=== PATIENT | female | born 1995 | race Asian ===

== ENCOUNTER → 2017-02-11 | Outpatient (CLI) | payer BC ==
[~2017-02-11] MED LIST: AMOX1TAB42 PO; CALC500C70 PO; CLC100 PO; CLC150 PO; FERR1TAB2; LBT100 PO; MTR600X PO; OXYC-57 PO; PRENTAB26 PO
[2017-02-11 15:49] LABS: URINE APPEARANCE CLEAR (CLEAR); URINE BILIRUBIN NEG (NEG); URINE COLOR YELLOW; URINE EPITHELIAL CELL AUTO >30 /lpf (0-5); URINE NITRITE NEG (NEG); URINE SPECIFIC GRAVITY 1.015 (1.000-1.030); UROBILINOGEN NEG (NEG)
[2017-02-11 15:52] LABS: MANUAL MICROSCOPIC REQUIRED? NO; REVIEW REQ? NO
== END | disposition home or self-care (01) ==
LOC: C.LABSPEC 14:46
PROVIDERS: ATTEND Obstetrics & Gynecology
DX: Z34.02 Encounter for supervision of normal first pregnancy, second trimester (principal)

== ENCOUNTER → 2017-02-17 | Outpatient (CLI) | payer BC ==
[2017-02-17 14:47] LABS: HEMATOCRIT 33.4 % (37-47)
[2017-02-17 15:02] LABS: GTGD 50 Grams
== END | disposition home or self-care (01) ==
LOC: C.LAB1850 13:10
PROVIDERS: ATTEND Obstetrics & Gynecology
DX: Z34.03 Encounter for supervision of normal first pregnancy, third trimester (principal)

== ENCOUNTER → 2017-03-09 | Outpatient (CLI) | payer BC ==
[2017-03-09 10:48] LABS: BASO % 0.1 %; BASO ABS # 0.01 K/uL (0-0.2); EOS % 1.1 %; HEMATOCRIT 34.7 % (37-47); IG% 2.4 %; LYMPH % 16.4 %; LYMPH ABS # 1.86 K/uL (1.2-3.4); MEAN CORPUSCULAR HEMOGLOBIN 27.3 pg (25-34); MEAN PLATELET VOLUME 9.7 fL (7.4-10.4); MONO % 4.9 %; NEUT % 75.1 %; PLATELET COUNT 278 K/uL (130-400); RED BLOOD COUNT 4.18 M/uL (4.2-5.4); WHITE BLOOD COUNT 11.31 K/uL (4.8-10.8)
[2017-03-09 11:05] LABS: COMPLETE YES; MEAN CORPUSCULAR HGB CONC 32.9 g/dl (32-36)
[2017-03-09 11:12] LABS: ALT/SGPT 30 U/L (12-78); AST/SGOT 23 U/L (15-37); CREATININE 0.44 mg/dl (0.60-1.20); URIC ACID 3.3 mg/dl (2.6-7.2)
== END | disposition home or self-care (01) ==
LOC: C.LAB1850 10:20
PROVIDERS: ATTEND Obstetrics & Gynecology
DX: O16.3 Unspecified maternal hypertension, third trimester (principal)

== ENCOUNTER → 2017-03-11 | Outpatient (CLI) | payer BC ==
[2017-03-11 10:04] LABS: URINE TOTAL PROTEIN 16.5 mg/dl (0-11.9)
== END | disposition home or self-care (01) ==
LOC: C.LAB1850 09:09
PROVIDERS: ATTEND Obstetrics & Gynecology
DX: O16.3 Unspecified maternal hypertension, third trimester (principal)

== ENCOUNTER → 2017-03-30 | Outpatient (CLI) | payer BC ==
[2017-03-30 11:55] LABS: HEMATOCRIT 37.8 % (37-47); MEAN CELL VOLUME 83.1 fL (80-100); MEAN CORPUSCULAR HEMOGLOBIN 26.6 pg (25-34); MEAN PLATELET VOLUME 10.1 fL (7.4-10.4); PLATELET COUNT 270 K/uL (130-400); RED BLOOD COUNT 4.55 M/uL (4.2-5.4); WHITE BLOOD COUNT 10.81 K/uL (4.8-10.8)
[2017-03-30 12:08] LABS: ALKALINE PHOSPHATASE 149 U/L (45-117); ALT/SGPT 33 U/L (12-78); AST/SGOT 25 U/L (15-37); URIC ACID 3.4 mg/dl (2.6-7.2)
== END | disposition home or self-care (01) ==
LOC: C.LAB1850 10:28
PROVIDERS: ATTEND Obstetrics & Gynecology
DX: O13.3 Gestational [pregnancy-induced] hypertension without significant proteinuria, third trimester (principal)

== ENCOUNTER → 2017-04-04 | Outpatient (CLI) | payer BC ==
[2017-04-04 18:22] LABS: HEMATOCRIT 36.1 % (37-47); MEAN CELL VOLUME 81.5 fL (80-100); MEAN CORPUSCULAR HEMOGLOBIN 27.1 pg (25-34); MEAN CORPUSCULAR HGB CONC 33.2 g/dl (32-36); MEAN PLATELET VOLUME 10.7 fL (7.4-10.4); PLATELET COUNT 263 K/uL (130-400); RED BLOOD COUNT 4.43 M/uL (4.2-5.4); WHITE BLOOD COUNT 9.87 K/uL (4.8-10.8)
[2017-04-04 18:38] LABS: ALKALINE PHOSPHATASE 151 U/L (45-117); ALT/SGPT 30 U/L (12-78); AST/SGOT 22 U/L (15-37)
== END | disposition home or self-care (01) ==
LOC: C.LAB1850 17:16
PROVIDERS: ATTEND Obstetrics & Gynecology
DX: O13.3 Gestational [pregnancy-induced] hypertension without significant proteinuria, third trimester (principal)

== ENCOUNTER → 2017-04-13 | Outpatient (CLI) | payer BC ==
[2017-04-13 13:17] LABS: BASO % 0.2 %; BASO ABS # 0.02 K/uL (0-0.2); COMPLETE YES; EOS % 1.1 %; HEMATOCRIT 38.1 % (37-47); IG% 1.9 %; LYMPH % 16.2 %; LYMPH ABS # 1.53 K/uL (1.2-3.4); MEAN CELL VOLUME 81.4 fL (80-100); MEAN CORPUSCULAR HEMOGLOBIN 27.6 pg (25-34); MEAN CORPUSCULAR HGB CONC 33.9 g/dl (32-36); MEAN PLATELET VOLUME 10.8 fL (7.4-10.4); MONO % 4.3 %; NEUT % 76.3 %; PLATELET COUNT 275 K/uL (130-400); RED BLOOD COUNT 4.68 M/uL (4.2-5.4); WHITE BLOOD COUNT 9.47 K/uL (4.8-10.8)
[2017-04-13 14:58] LABS: ALT/SGPT 34 U/L (12-78); AST/SGOT 29 U/L (15-37); BLOOD UREA NITROGEN 12 mg/dl (7-18); BUN/CREATININE RATIO 22.5 (10-20); CALCIUM 9.4 mg/dl (8.5-10.1); CARBON DIOXIDE 19 mmol/L (21-32); CHLORIDE 109 mmol/L (98-107); CREATININE 0.53 mg/dl (0.60-1.20); GLUCOSE 177 mg/dl (70-99); POTASSIUM 3.9 mmol/L (3.5-5.1); SODIUM 138 mmol/L (136-145)
[2017-04-13 15:01] LABS: ALB/GLOB RATIO 0.6 (0.9-2); ALKALINE PHOSPHATASE 174 U/L (45-117)
== END | disposition home or self-care (01) ==
LOC: C.LAB1850 12:03
PROVIDERS: ATTEND Obstetrics & Gynecology
DX: O13.3 Gestational [pregnancy-induced] hypertension without significant proteinuria, third trimester (principal)

== ENCOUNTER 2017-04-20 11:26 | Outpatient (CLI) | payer BC ==
[~2017-04-20] VITALS: Ht 162.6 cm; Wt 101.8 kg
[2017-04-20 12:18] LABS: BASO % 0.2 %; BASO ABS # 0.02 K/uL (0-0.2); HEMATOCRIT 37.5 % (37-47); IG% 1.8 %; LYMPH % 15.3 %; LYMPH ABS # 1.59 K/uL (1.2-3.4); MEAN CELL VOLUME 81.2 fL (80-100); MEAN CORPUSCULAR HEMOGLOBIN 27.5 pg (25-34); MEAN PLATELET VOLUME 10.9 fL (7.4-10.4); MONO % 4.7 %; PLATELET COUNT 244 K/uL (130-400); RED BLOOD COUNT 4.62 M/uL (4.2-5.4); WHITE BLOOD COUNT 10.38 K/uL (4.8-10.8)
[2017-04-20 12:24] LABS: INR 0.9 (0.9-1.1); PROTHROMBIN TIME (PATIENT) 9.7 SECONDS (9.0-12.0)
[2017-04-20] MEDS ORDERED: CALC500C70 PO (12:30)
[2017-04-20] MEDS ORDERED: FERR1TAB2 (12:30)
[2017-04-20] MEDS ORDERED: PRENTAB26 PO (12:30)
[2017-04-20 12:31] VITALS: Ht 162.6 cm; Wt 101.8 kg
[2017-04-20 12:31] LABS: COMPLETE YES; MEAN CORPUSCULAR HGB CONC 33.9 g/dl (32-36)
[2017-04-20] MEDS ORDERED: ACETAMINOPHEN 325 MG TAB PO PRN (12:45)
[2017-04-20 12:46] LABS: ALKALINE PHOSPHATASE 170 U/L (45-117); ALT/SGPT 55 U/L (12-78); AST/SGOT 39 U/L (15-37); CREATININE 0.57 mg/dl (0.60-1.20); URIC ACID 5.7 mg/dl (2.6-7.2)
[2017-04-20 12:47] LABS: URINE TOTAL PROTEIN 44.3 mg/dl (0-11.9)
[2017-04-20 13:29] LABS: URINE PROTIEN/CREAT RATIO 0.6 (0-0.2)
[2017-04-28] MEDS ORDERED: MTR600X PO (06:51)
[2017-04-28] MEDS ORDERED: CLC150 PO (06:51)
[2017-04-28] MEDS ORDERED: CLC100 PO (06:51)
[2017-04-28] MEDS ORDERED: LBT100 PO (06:51)
[2017-04-28] MEDS ORDERED: AMOX1TAB42 PO (06:51)
[2017-04-28] MEDS ORDERED: OXYC-57 PO (06:51)
== END 2017-04-20 14:05 | disposition home or self-care (01) ==
LOC: C.LD 11:26 → C.OPB 11:26
PROVIDERS: ATTEND Obstetrics & Gynecology
DX: O13.3 Gestational [pregnancy-induced] hypertension without significant proteinuria, third trimester (principal); Z3A.36 36 weeks gestation of pregnancy

== ENCOUNTER → 2017-04-20 | Outpatient (CLI) | payer BC ==
[~2017-04-20] MED LIST changes: -AMOX1TAB42 PO; -CLC100 PO; -CLC150 PO; -LBT100 PO; -MTR600X PO; -OXYC-57 PO
== END | disposition home or self-care (01) ==
LOC: C.LABSPEC 13:55
PROVIDERS: ATTEND Obstetrics & Gynecology
DX: Z34.03 Encounter for supervision of normal first pregnancy, third trimester (principal); Z3A.00 Weeks of gestation of pregnancy not specified

== ENCOUNTER 2017-04-22 12:15 | Inpatient (IN) | payer BC ==
[~2017-04-22] VITALS: Ht 160 cm; Wt 100.2 kg
[2017-04-22 13:05] VITALS: Ht 160 cm; Wt 100.2 kg
[2017-04-22] MEDS ORDERED: PENICILLIN G POTASSIUM IV 6 MU in DEXTROSE 5% 250ML 250 ML IV ONE (14:15)
[2017-04-22] MEDS: LACTATED RINGER'S 1000ML 500 ML IV PRN ×2 (14:21→22:43)
[2017-04-22] MEDS: OXYTOCIN 30 UNITS/500ML NSS IV PRN (14:33)
[2017-04-22 14:53] LABS: BASO % 0.2 %; BASO ABS # 0.02 K/uL (0-0.2); EOS % 0.8 %; HEMATOCRIT 37.4 % (37-47); IG% 2.4 %; LYMPH % 14.4 %; LYMPH ABS # 1.64 K/uL (1.2-3.4); MEAN CORPUSCULAR HEMOGLOBIN 27.7 pg (25-34); MEAN PLATELET VOLUME 10.8 fL (7.4-10.4); NEUT % 76.2 %; PLATELET COUNT 246 K/uL (130-400); RED BLOOD COUNT 4.62 M/uL (4.2-5.4); WHITE BLOOD COUNT 11.37 K/uL (4.8-10.8)
[2017-04-22 14:59] LABS: COMPLETE YES; MEAN CORPUSCULAR HGB CONC 34.2 g/dl (32-36)
[2017-04-22 15:11] LABS: ALT/SGPT 54 U/L (12-78); AST/SGOT 46 U/L (15-37)
[2017-04-22] MEDS: PENICILLIN G POTASSIUM IV 3 MU in DEXTROSE 5% 100ML 100 ML IV PRN ×2 (18:18→22:43)
[2017-04-22] MEDS: ACETAMINOPHEN 500 MG TAB PO PRN (19:52)
[2017-04-22 22:31] LABS: BASO % 0.2 %; BASO ABS # 0.03 K/uL (0-0.2); EOS % 0.7 %; HEMATOCRIT 38.1 % (37-47); IG% 2.2 %; LYMPH % 15.9 %; LYMPH ABS # 1.98 K/uL (1.2-3.4); MEAN CELL VOLUME 81.4 fL (80-100); MEAN PLATELET VOLUME 10.9 fL (7.4-10.4); MONO % 5.2 %; NEUT % 75.8 %; PLATELET COUNT 265 K/uL (130-400); RED BLOOD COUNT 4.68 M/uL (4.2-5.4); WHITE BLOOD COUNT 12.43 K/uL (4.8-10.8)
[2017-04-22] MEDS ORDERED: BUPIVACAINE 0.25% 30 ML VIAL ONE (22:33)
[2017-04-22] MEDS ORDERED: EpHEDrine SULFATE INJ 50 MG/ML AMP ONE (22:33)
[2017-04-22] MEDS ORDERED: FENTANYL 2MCG/ML ROPIV 1.25MG/ML 100ML BAG EPI ONE (22:33)
[2017-04-22 22:34] LABS: COMPLETE YES; MEAN CORPUSCULAR HGB CONC 34.4 g/dl (32-36)
[2017-04-22] MEDS ORDERED: FENTANYL CITRATE INJ 50 MCG/1 ML 2 ML VIAL ONE (22:34)
[2017-04-22 22:47] LABS: ALT/SGPT 56 U/L (12-78); AST/SGOT 49 U/L (15-37)
[2017-04-22] MEDS ORDERED: LACTATED RINGER'S 1000ML 500 ML IV PRN (23:20)
[2017-04-22] MEDS ORDERED: NALOXONE HCL INJ 1 MG in SODIUM CHLORIDE 0.9% 1000ML 1,000 ML IV PRN (23:20)
[2017-04-22] MEDS ORDERED: EpHEDrine SULFATE INJ 50 MG/ML AMP IV PRN (23:30)
[2017-04-22] MEDS ORDERED: NALBUPHINE HCL INJ 10 MG/ML AMP IV PRN (23:30)
[2017-04-22] MEDS ORDERED: DiphenhydrAMINE HCL 50 MG/ML VIAL IV PRN (23:30)
[2017-04-22] MEDS ORDERED: ONDANSETRON INJ 2 MG/ML 2 ML VIAL IV PRN (23:30)
[2017-04-22] MEDS ORDERED: NALOXONE HCL INJ 0.4 MG/1 ML VIAL/CARP IV PRN (23:30)
[2017-04-23] MEDS: PENICILLIN G POTASSIUM IV 3 MU in DEXTROSE 5% 100ML 100 ML IV PRN ×6 (02:16→22:36)
[2017-04-23] MEDS ORDERED: NIFEdipine 10 MG CAP PO STA ×2 (02:28→06:15)
[2017-04-23] MEDS: ACETAMINOPHEN 500 MG TAB PO PRN (03:14)
[2017-04-23] MEDS ORDERED: MAGNESIUM SULFATE / WTR 1,000 ML IV ONE (03:32)
[2017-04-23] MEDS ORDERED: MAGNESIUM SULFATE 4GM / WTR 4 GM BAG ONE (03:38)
[2017-04-23] MEDS: FENTANYL 2MCG/ML ROPIV 1.25MG/ML 100ML BAG EPI PRN ×7 (04:58→21:40)
[2017-04-23 06:21] LABS: BASO % 0.1 %; BASO ABS # 0.02 K/uL (0-0.2); EOS % 0.3 %; HEMATOCRIT 40.2 % (37-47); IG% 1.5 %; LYMPH % 15.1 %; LYMPH ABS # 2.15 K/uL (1.2-3.4); MEAN CELL VOLUME 81.7 fL (80-100); MEAN CORPUSCULAR HEMOGLOBIN 27.8 pg (25-34); MEAN PLATELET VOLUME 10.7 fL (7.4-10.4); MONO % 3.9 %; NEUT % 79.1 %; PLATELET COUNT 265 K/uL (130-400); RED BLOOD COUNT 4.92 M/uL (4.2-5.4)
[2017-04-23 06:33] LABS: COMPLETE YES; MEAN CORPUSCULAR HGB CONC 34.1 g/dl (32-36)
[2017-04-23 06:52] LABS: ALT/SGPT 59 U/L (12-78); AST/SGOT 49 U/L (15-37)
[2017-04-23 13:40] LABS: BASO % 0.1 %; BASO ABS # 0.02 K/uL (0-0.2); EOS % 0.1 %; HEMATOCRIT 39.8 % (37-47); IG% 1.1 %; LYMPH % 9.5 %; LYMPH ABS # 1.41 K/uL (1.2-3.4); MEAN CELL VOLUME 80.7 fL (80-100); MEAN CORPUSCULAR HEMOGLOBIN 27.8 pg (25-34); MEAN PLATELET VOLUME 10.7 fL (7.4-10.4); MONO % 3.8 %; NEUT % 85.4 %; PLATELET COUNT 280 K/uL (130-400); RED BLOOD COUNT 4.93 M/uL (4.2-5.4); WHITE BLOOD COUNT 14.91 K/uL (4.8-10.8)
[2017-04-23 13:45] LABS: COMPLETE YES; MEAN CORPUSCULAR HGB CONC 34.4 g/dl (32-36)
[2017-04-23 14:07] LABS: ALT/SGPT 56 U/L (12-78); AST/SGOT 49 U/L (15-37)
[2017-04-23] MEDS: NIFEdipine 10 MG CAP PO SCH ×3 (15:24→23:51)
[2017-04-23] MEDS: LACTATED RINGER'S 1000ML 500 ML IV PRN (18:14)
[2017-04-23] MEDS: OXYTOCIN 30 UNITS/500ML NSS IV PRN (19:09)
[2017-04-23 22:17] LABS: BASO % 0.1 %; BASO ABS # 0.02 K/uL (0-0.2); EOS % 0.1 %; HEMATOCRIT 37.9 % (37-47); IG% 1.5 %; LYMPH ABS # 1.17 K/uL (1.2-3.4); MEAN CELL VOLUME 80.8 fL (80-100); MEAN CORPUSCULAR HEMOGLOBIN 27.9 pg (25-34); MEAN PLATELET VOLUME 10.5 fL (7.4-10.4); MONO % 4.2 %; NEUT % 88.1 %; PLATELET COUNT 291 K/uL (130-400); RED BLOOD COUNT 4.69 M/uL (4.2-5.4); WHITE BLOOD COUNT 19.55 K/uL (4.8-10.8)
[2017-04-23 22:24] LABS: COMPLETE YES; MEAN CORPUSCULAR HGB CONC 34.6 g/dl (32-36)
[2017-04-23 22:46] LABS: ALT/SGPT 49 U/L (12-78); AST/SGOT 44 U/L (15-37)
[2017-04-24] MEDS ORDERED: MAGNESIUM SULFATE 40GM/ WTR 1,000 ML BAG ONE (00:02)
[2017-04-24] MEDS ORDERED: FENTANYL 2MCG/ML ROPIV 1.25MG/ML 100ML BAG EPI ONE ×2 (01:50→06:50)
[2017-04-24] MEDS: PENICILLIN G POTASSIUM IV 3 MU in DEXTROSE 5% 100ML 100 ML IV PRN ×2 (02:45→06:01)
[2017-04-24] MEDS ORDERED: NIFEdipine 10 MG CAP ONE (03:44)
[2017-04-24] MEDS ORDERED: LABETALOL HCL IV 5 MG/ML 20ML IV STA (05:37)
[2017-04-24 06:13] LABS: HEMATOCRIT 39.4 % (37-47); MEAN CELL VOLUME 80.4 fL (80-100); MEAN CORPUSCULAR HGB CONC 34.8 g/dl (32-36); MEAN PLATELET VOLUME 10.6 fL (7.4-10.4); PLATELET COUNT 305 K/uL (130-400); WHITE BLOOD COUNT 25.39 K/uL (4.8-10.8)
[2017-04-24] MEDS: FENTANYL 2MCG/ML ROPIV 1.25MG/ML 100ML BAG EPI PRN (06:51)
[2017-04-24 07:08] LABS: ALB/GLOB RATIO 0.5 (0.9-2); BUN/CREATININE RATIO 13.2 (10-20); CALCIUM 8.5 mg/dl (8.5-10.1); CREATININE 0.6 mg/dl (0.60-1.20); POTASSIUM 3.8 mmol/L (3.5-5.1)
[2017-04-24 08:34] LABS: BASO % 0.1 %; BASO ABS # 0.03 K/uL (0-0.2); COMPLETE YES; LYMPH % 5.5 %; NEUT % 88.4 %
[2017-04-24] MEDS ORDERED: LACTATED RINGER'S 1000ML 1,000 ML IV SCH (10:23)
[2017-04-24] MEDS ORDERED: CITRIC ACID/SODIUM CITRATE 15 ML UDC ONE (10:24)
[2017-04-24] MEDS ORDERED: CITRIC ACID/SODIUM CITRATE 15 ML UDC PO ONE (10:30)
[2017-04-24] MEDS ORDERED: METOCLOPRAMIDE HCL INJ 5 MG/ML 2 ML VIAL ONE (10:40)
[2017-04-24] MEDS ORDERED: OXYTOCIN INJ 10 UNITS/ML VIAL ONE (10:40)
[2017-04-24] MEDS ORDERED: LIDOCAINE/EPINEPHRINE 2% 1:200,000 20 ML SDV ONE (10:40)
[2017-04-24] MEDS ORDERED: ONDANSETRON INJ 2 MG/ML 2 ML VIAL ONE (10:40)
[2017-04-24] MEDS ORDERED: PROPOFOL IV EMULSION 10 MG/ML 20 ML VIAL IV ONE (10:40)
[2017-04-24] MEDS ORDERED: SUCCINYLCHOLINE CHLORIDE 20 MG/ML 10 ML VIAL IV ONE (10:40)
[2017-04-24] MEDS ORDERED: NALOXONE HCL INJ 0.08 MG in SYRINGE 1.8 ML IV PRN (10:51)
[2017-04-24] MEDS ORDERED: SODIUM CHLORIDE 0.9% 1000ML 1,000 ML IV PRN (10:51)
[2017-04-24] MEDS ORDERED: NALOXONE HCL INJ 1 MG in SODIUM CHLORIDE 0.9% 1000ML 1,000 ML IV PRN ×4 (10:51)
[2017-04-24] MEDS ORDERED: LACTATED RINGER'S 1000ML 500 ML IV PRN (10:51)
[2017-04-24] MEDS ORDERED: METOCLOPRAMIDE HCL INJ 20 MG in SODIUM CHLORIDE 0.9% 50ML 50 ML IV PRN (11:00)
[2017-04-24] MEDS ORDERED: CEFAZOLIN IV 3,000 MG in DEXTROSE 5% 50ML 50 ML IV SCH (11:00)
[2017-04-24] MEDS ORDERED: NALOXONE HCL 0.4 MG/1 ML VIAL/CARP IV PRN (11:00)
[2017-04-24] MEDS ORDERED: MoRPHine SULFATE PF 1 MG/ML 10 ML AMP/VIAL EPI PRN (11:00)
[2017-04-24] MEDS ORDERED: NALBUPHINE HCL INJ 10 MG/ML AMP IV PRN (11:00)
[2017-04-24] MEDS ORDERED: MEPERIDINE HCL 25 MG/ML CARP IV PRN ×2 (11:00)
[2017-04-24] MEDS ORDERED: HYDROmorphone INJ 0.5 MG/0.5 ML SYR IV PRN (11:00)
[2017-04-24] MEDS ORDERED: PHENYLEPHRINE 100MCG/ML 5ML SYR IV PRN (11:00)
[2017-04-24] MEDS ORDERED: EpHEDrine SULFATE INJ 50 MG/ML AMP IV PRN ×2 (11:00)
[2017-04-24] MEDS ORDERED: ATROPINE SULFATE 0.1 MG/ML 5ML SYR IV PRN (11:00)
[2017-04-24] MEDS ORDERED: DiphenhydrAMINE HCL 50 MG/ML VIAL IV PRN (11:00)
[2017-04-24] MEDS ORDERED: NO NARCOTICS OR SEDATIVES SCH (11:00)
[2017-04-24] MEDS ORDERED: ONDANSETRON INJ 2 MG/ML 2 ML VIAL IV PRN ×2 (11:00)
[2017-04-24] MEDS ORDERED: PROMETHAZINE HCL INJ 12.5 MG in SODIUM CHLORIDE 0.9% 50ML 50 ML IV PRN ×4 (11:00)
[2017-04-24] MEDS ORDERED: KETOROLAC TROMETHAMINE 30 MG/ML VIAL IV. PRN ×2 (11:00)
[2017-04-24] MEDS ORDERED: MoRPHine SULFATE PF 1 MG/ML 10 ML AMP/VIAL ONE (11:20)
[2017-04-24] MEDS ORDERED: DC INTRASPINAL MORPHINE SCH (11:30)
[2017-04-24] MEDS ORDERED: MISOPROSTOL 200 MCG TAB ONE (11:32)
[2017-04-24] MEDS ORDERED: OXYTOCIN INJ 10 UNITS/ML VIAL IM ONE (11:32)
[2017-04-24] MEDS ORDERED: EpHEDrine SULFATE 50MG/5ML SYR ONE (11:57)
[2017-04-24] MEDS ORDERED: PHENYLEPHRINE 100MCG/ML 5ML SYR ONE (11:57)
--- NOTE | 2017-04-24 12:11 | [facility] Post Operative Brief Note ---
Immediate Operative Summary Operative Date Apr 24, 2017. Pre-Operative Diagnosis 1.Pre-eclampsia with Severe Features 2. IUP at 36 weeks 3. Failure to Dilate Post-Operative Diagnosis Same Procedure(s) Performed Primary Lower Uterine Transverse Caesarean Section for the of a viable male at 1115. B-Benz suture of uterus. Surgeon Dr. Vargas Psychological Assistant Surgeon(s) Dr. Bermudez Estimated Blood Loss 700cc Findings Viable male , Apgars 1, 7, 8. Wt 7#0. Normal appearing ovaries, tubes. Uterus very boggy at time of delivery. Firmed after administration of IM pitocin , IM hemabate, B-Benz suture. Specimens 1. Placenta: Exam 2. Venous and Arterial Cord Gases 3. Cord blood obtained Drains henley, clear yellow Anesthesia epidural re-dosed Complication(s) Uterine atony, requiring IM pitocin injected into uterus, IM hemabate, B-Benz suture. TN cytotec given at conclusion of case. Disposition L&D
[2017-04-24] MEDS ORDERED: BENZOCAINE 20% AER SPR 82.5 GM CAN EXT PRN (12:15)
[2017-04-24] MEDS ORDERED: MAGNESIUM HYDROXIDE SUSP 30 ML UDC PO PRN (12:15)
[2017-04-24] MEDS ORDERED: LANOLIN OINT EXT PRN ×2 (12:15)
[2017-04-24] MEDS ORDERED: HYDROCORTISONE ACETATE 25 MG SUPP PR PRN (12:15)
[2017-04-24] MEDS ORDERED: SUPERCREAM 0.870 % 15GM JAR EXT PRN (12:15)
[2017-04-24] MEDS ORDERED: CARBOPROST TROMETHAMINE 250 MCG/ML AMP ONE (12:24)
[2017-04-24] MEDS ORDERED: OXYTOCIN INJ 20 UNITS in LACTATED RINGER'S 1000ML 1,000 ML IV SCH (13:00)
--- NOTE | 2017-04-24 13:17 | OPERATIVE REPORT ---
DATE OF OPERATION: 04/24/2017 PREOPERATIVE DIAGNOSES: 1. A 22-year-old G1, P0 at 36 weeks 4 days. 2. Preeclampsia with severe features. 3. Failure to dilate. POSTOPERATIVE DIAGNOSES: Same plus uterine atony. PROCEDURES PERFORMED: Primary low transverse section and B-Benz suture of uterus. SURGEON: Sandy Vargas DO. DOORKEEPER: Dr. Bermudez. ESTIMATED BLOOD LOSS: 700 mL. FINDINGS: Viable male , Apgars of 1 at 1 minute, 7 at 5 minutes and 8 at 10 minutes. Weight 7 pounds 0 ounces. Normal appearing ovaries and tubes. Uterus was very boggy at the time of delivery. It became firm after administration of IM Pitocin directly into the uterus. IM Hemabate and a B-Benz suture. SPECIMENS: Placenta, blood gases and cord blood. DRAINS: Phillips, clear yellow. ANESTHESIA: Epidural redosed. COMPLICATIONS: Uterine atony requiring IM Pitocin injected into the uterus. IM Hemabate and a B-Benz suture. Per rectum, Cytotec was given at the conclusion of the case. DISPOSITION: Labor and delivery in stable and good condition. INDICATIONS FOR PROCEDURE: The patient is a 22-year-old G1, P0 at 36 weeks 4 days, who was admitted for induction of labor due to diagnosis of preeclampsia with severe features. She was started on magnesium sulfate for seizure prophylaxis and was being treated for elevated blood pressures with p.o. Procardia. She underwent rupture of membranes on April 22 at midnight and was given Pitocin to induce labor. The patient progressed slowly throughout labor to 9 cm dilation, 100% effacement and +1 station; however, after multiple hours at 9 cm, had a failure to dilate beyond 9 cm. heart tracing was category 1. Due to failure to dilate, decision was made to proceed with section. DESCRIPTION OF PROCEDURE: The patient was seen in her labor and delivery room, where risks, benefits, and alternatives to surgery were reviewed. She elected to proceed with the case. All questions were answered and informed consent was obtained. She was taken to the operating room, where 3 grams of Ancef were infused. She was prepared and draped in the usual sterile fashion in the supine position with a leftward tilt. A timeout was confirmed. The Pfannenstiel skin incision was made with a scalpel and carried through to the underlying layer of the fascia. The fascia was nicked at midline and this incision was extended bilaterally bluntly. The superior aspect of the fascial incision was grasped with Gilda clamps x2, elevated off the underlying rectus abdominis muscles and dissected bluntly and sharply. In a similar fashion, the inferior aspect of the incision was dissected. The rectus abdominis muscles were at midline and the peritoneum was entered bluntly. This incision was extended bluntly. The bladder blade was placed. A bladder flap was created using Metzenbaum scissors and Luxembourger forceps. The bladder was then dissected off the anterior aspect of the uterus. The bladder blade was replaced. The low transverse uterine incision was made with a scalpel and this incision was extended cephalad caudad manually. The was then delivered from a cephalic presentation. The head delivered. No nuchal cord was noted; however, the umbilical cord delivered at the same time as the head. The anterior shoulder and the posterior shoulder were delivered followed by the body. Delivery was difficult due to the 's leg being wrapped in umbilical cord, which caused a slow, but gentle delivery. The cord was doubly clamped and cut. Baby was handed off to the waiting pediatrics team. The placenta was delivered spontaneously intact with a 3-vessel cord. The uterus was cleared of all clots and debris. The uterus was very boggy at this point and IV Pitocin was given. The hysterotomy incision was reapproximated using 0 Vicryl in a running locked stitch. A second layer of the same suture was used to imbricate the hysterotomy incision. Excellent hemostasis was noted at the hysterotomy; however, the uterus was still very boggy and atonic at this time. Ten units of IM Pitocin was injected into the muscular wall of the uterus as well as IM Hemabate was given by anesthesia. At this time, the uterus was beginning to firm; however, still very boggy and out of concern for continued uterine atony and potential hemorrhage, the decision was made to perform B-Benz suture. This was performed with an 0 PDS on a CTX needle. The uterus was clamped down with the B-Benz suture and tied off and began to firm. The uterus was replaced in the abdominal cavity. Bilateral gutters were cleared and the cavity was irrigated. Due to copious amounts of debris, the hysterotomy incision was reinspected and noted to be hemostatic. The uterus was also becoming firm. The fascial incision was reapproximated with 0 Vicryl in a running stitch. The subcutaneous tissue was irrigated and reapproximated using a running stitch of 2-0 plain gut and the skin incision was reapproximated using 4-0 Vicryl in a running subcuticular stitch. Steri-Strips and a bandage were applied. The Cytotec was given per rectum and the patient was taken from the operating room to the recovery area in stable and good condition. At the conclusion of the case, I discussed the case with the patient and described the uterine atony and the B-Benz suture and she is stable at this time. Mother and baby tolerated the delivery well and are in stable and good condition. I attest to the content of the Intraoperative Record and any orders documented therein. Any exception s are noted below.
[2017-04-24 14:38] LABS: HEMATOCRIT 39.3 % (37-47); MEAN CELL VOLUME 80.7 fL (80-100); MEAN CORPUSCULAR HEMOGLOBIN 27.1 pg (25-34); MEAN CORPUSCULAR HGB CONC 33.6 g/dl (32-36); MEAN PLATELET VOLUME 10.3 fL (7.4-10.4); PLATELET COUNT 285 K/uL (130-400); RED BLOOD COUNT 4.87 M/uL (4.2-5.4)
[2017-04-24 15:11] LABS: ALB/GLOB RATIO 0.5 (0.9-2); BUN/CREATININE RATIO 11.7 (10-20); CALCIUM 7.9 mg/dl (8.5-10.1); CREATININE 0.74 mg/dl (0.60-1.20); MAGNESIUM 5.7 mg/dl (1.8-2.4); POTASSIUM 3.7 mmol/L (3.5-5.1)
[2017-04-24 15:30] LABS: ANISOCYTOSIS PRESENT; BASO % 0.1 %; BASO ABS # 0.01 K/uL (0-0.2); COMPLETE YES; EOS % 0.1 %; IG% 1.1 %; LYMPH % 5.8 %; MONO % 2.4 %; NEUT % 90.5 %; POLYCHROMASIA 1+
[2017-04-24] MEDS: SIMETHICONE 80 MG CHEW PO SCH ×2 (17:00→21:00)
--- NOTE | 2017-04-24 17:31 | Anesthesiology Progress Note ---
Anesthesia Post Op Note Date & Time Apr 24, 2017 at 17:31 Notes Mental Status: alert / awake / arousable, participated in evaluation Pt Amnestic to Procedure: Yes Nausea / Vomiting: adequately controlled Pain: adequately controlled Airway Patency, RR, SpO2: stable & adequate BP & HR: stable & adequate Hydration State: stable & adequate Anesthetic Complications: no major complications apparent
[2017-04-24] MEDS: DOCUSATE SODIUM 100 MG CAP PO SCH (19:42)
[2017-04-24] MEDS ORDERED: OPTIRAY 320 IV PRN (20:15)
--- NOTE | 2017-04-24 20:39 | Progress Note ---
Progress Note Date of Service Apr 24, 2017. Progress Note Called to patient room to evaluate for persistent tachycardia and tachypnea. At bedside, patient is not appearing in acute distress, but she has respiratory rate of 30 and tachycardic heart rate in 110-120s. This has persisted since prior to delivery. She states she feels well, and has had elevated respiratory rate for the past few weeks. O2 saturation wnl, denies shortness of breath, chest pain, weakness, dizziness. Patient does fall asleep very quickly and snores loudly when she sleeps. Lung sounds clear, equal breath sounds bilaterally. Cardiac exam [id number]. Due to persistent tachycardia and tachypnea, will perform CT chest to r/o PE, pneumonia, atelectasis, pulmonary edema. If this workup is negative, will consider a respiratory consultation for sleep apnea.
--- NOTE | 2017-04-24 21:38 | DIAGNOSTIC IMAGING REPORT ---
(CHEST FOR PE) ANGIO WITH CLINICAL HISTORY: 22 years-old Female presenting with tachycardia, tachypnea, , preeclampsia, clinical concern for pulmonary embolus. TECHNIQUE: Multidetector CT angiography of the chest was performed after administration of intravenous contrast. 3-D volumetric and/or maximum intensity projection (MIP) images were subsequently reconstructed for review. IV contrast: 90 mL of Optiray 320. A dose lowering technique was used consistent with the principles of ALARA (as low as reasonably achievable). COMPARISON: None. CT DOSE (mGy.cm): The estimated cumulative dose is 941.30 mGy.cm. FINDINGS: Research Advisor topogram: Unremarkable. Pulmonary vasculature: The study is suboptimal secondary to timing of the contrast bolus and respiratory motion. No central filling defect within the pulmonary arteries. Evaluation of segmental and subsegmental arteries limited. Main pulmonary artery is not enlarged. No flattening of the interventricular septum. No intracardiac intracardiac filling defect. No reflux of contrast into the hepatic veins. Remaining chest: On soft tissue windows, normal thyroid and thoracic inlet. No axillary, supraclavicular, hilar, or mediastinal lymphadenopathy. Normal aorta. Mildly enlarged. No pericardial effusion. Trace left pleural effusion. Upper abdomen normal. On lung windows, minimal dependent atelectasis. No other focal infiltrate. Airways patent. On bone windows, normal osseous structures. IMPRESSION: 1. No evidence of central pulmonary embolus allowing for suboptimal image quality. No convincing evidence of acute intrathoracic pathology. 2. Trace left pleural effusion. 3. Borderline cardiomegaly. Electronically signed by: Jayjay Hardy M.D. 04/24/2017 9:37 PM Dictated Date/Time: 04/24/2017 9:31 PM
[2017-04-24 22:27] LABS: HEMATOCRIT 34.3 % (37-47); MEAN CELL VOLUME 80.5 fL (80-100); MEAN CORPUSCULAR HEMOGLOBIN 27.7 pg (25-34); MEAN CORPUSCULAR HGB CONC 34.4 g/dl (32-36); MEAN PLATELET VOLUME 9.9 fL (7.4-10.4); PLATELET COUNT 235 K/uL (130-400); RED BLOOD COUNT 4.26 M/uL (4.2-5.4); WHITE BLOOD COUNT 15.64 K/uL (4.8-10.8)
[2017-04-24 22:53] LABS: BUN/CREATININE RATIO 12.3 (10-20); CALCIUM 7.7 mg/dl (8.5-10.1); CREATININE 0.69 mg/dl (0.60-1.20); MAGNESIUM 4.5 mg/dl (1.8-2.4)
[2017-04-24 22:58] LABS: ALB/GLOB RATIO 0.5 (0.9-2)
--- NOTE | 2017-04-24 23:27 | Progress Note ---
Progress Note Date of Service Apr 24, 2017. Progress Note Notified that patient's temp has now elevated to 100.4 F. She remains tachycardic and tachypneic, but states she is feeling ok. She is hot to the touch. LE swollen, but nontender. Uterine fundus is extremely tender, patient cries out in pain during examination. Incision appears clean. Today's CT chest was negative for embolism or lung pathology. Given that patient had rupture of membranes for approx 36h prior to delivery, her elevated temp, hot to touch, and extreme pain during exam of uterine fundus , this is concerning for endometritis. Will obtain urine culture to r/o UTI, blood cultures to r/o sepsis, and will begin triple antibiotic therapy with amp/gent/clinda. For concern with patient's ongoing tachypnea over the past 2 weeks, have ordered a respiratory therapy consultation to evaluate for sleep apnea.
[2017-04-24 23:30] LABS: BASO % 0.1 %; BASO ABS # 0.01 K/uL (0-0.2); COMPLETE YES; EOS % 0.1 %; IG% 0.7 %; LYMPH % 7.4 %; LYMPH ABS # 1.16 K/uL (1.2-3.4); MONO % 3.5 %; NEUT % 88.2 %
[2017-04-24] MEDS ORDERED: GENTAMICIN CONSULT ACTIVE PRN (23:45)
[2017-04-25] VITALS (7 sets, daily range): BP systolic 146–168; BP diastolic 98–111; PULSE 110–128; TEMP 37.3–39.1; O2SAT 95–98
[2017-04-25] MEDS: GENTAMICIN INJ 100 MG in DEXTROSE 5% 100ML 100 ML IV SCH ×3 (02:00→18:27)
[2017-04-25] MEDS: LACTATED RINGER'S 1000ML 1,000 ML IV SCH (02:34)
[2017-04-25 03:38] LABS: MANUAL MICROSCOPIC REQUIRED? NO; REVIEW REQ? NO; URINE APPEARANCE CLEAR (CLEAR); URINE BILIRUBIN NEG (NEG); URINE COLOR YELLOW; URINE NITRITE NEG (NEG); URINE PH 5.5 (4.5-7.5); URINE SPECIFIC GRAVITY 1.019 (1.000-1.030); UROBILINOGEN NEG (NEG); ZZURINE CULT IF INDIC CATH NO
[2017-04-25] MEDS ORDERED: DiphenhydrAMINE HCL 50 MG/ML VIAL IV PRN (04:00)
[2017-04-25] MEDS ORDERED: KETOROLAC TROMETHAMINE 30 MG/ML VIAL IV. PRN (04:00)
[2017-04-25] MEDS: CLINDAMYCIN IV 900 MG in DEXTROSE 5% 100ML 100 ML IV SCH ×3 (04:00→19:59)
[2017-04-25] MEDS ORDERED: PROMETHAZINE HCL INJ 25 MG in SODIUM CHLORIDE 0.9% 50ML 50 ML IV PRN (04:00)
[2017-04-25] MEDS ORDERED: ONDANSETRON INJ 2 MG/ML 2 ML VIAL IV PRN (04:00)
[2017-04-25] MEDS: AMPICILLIN IV 2,000 MG in SODIUM CHLOR 0.9% AD-VAN 100ML 100 ML IV SCH ×5 (06:00→23:48)
[2017-04-25 06:52] LABS: BASO % 0.1 %; BASO ABS # 0.02 K/uL (0-0.2); COMPLETE YES; EOS % 0.1 %; HEMATOCRIT 33.1 % (37-47); IG% 0.8 %; LYMPH % 10.6 %; LYMPH ABS # 1.53 K/uL (1.2-3.4); MEAN CELL VOLUME 81.1 fL (80-100); MEAN CORPUSCULAR HEMOGLOBIN 28.2 pg (25-34); MEAN CORPUSCULAR HGB CONC 34.7 g/dl (32-36); NEUT % 83.4 %; PLATELET COUNT 218 K/uL (130-400); RED BLOOD COUNT 4.08 M/uL (4.2-5.4); WHITE BLOOD COUNT 14.43 K/uL (4.8-10.8)
--- NOTE | 2017-04-25 06:52 | Progress Note ---
Subjective Apr 25, 2017. Subjective conversation w/ patient, physical exam, chart review, lab review Ambulation: limited ambulation (in bed) Voiding: henley catheter in place Passing Gas: Yes Diet Tolerance: Clear Liquids Lochia: Small Feeding Type: Breast Feeding Pain: Presently 5/10 low abd pain and cramping Comment: Found pt resting in bed. Says her pain is improved with meds, not fully resolved. Denies CP, SOB, or other acute concerns. Says her (B)LE swelling has improved. Review of Systems Constitutional: No fever Respiratory: No cough, No shortness of breath Cardiac: + edema, No chest pain Abdomen: No nausea, No vomiting, No diarrhea Objective Physical Exam General Appearance: WD/WN, NO APPARENT DISTRESS Respiratory/Chest: lungs clear, normal breath sounds, no respiratory distress Cardiovascular: no murmur, + tachycardia (regular) Abdomen: normal bowel sounds, non tender, soft Fundus: Firm, Tender, Relation to Umbilicus (at umbilicus) Incision Description: Clean, Dry & Intact (dressing in place) Extremities: no calf tenderness, + pedal edema (2+ bilaterally, improved from prepartum) Laboratory Results Last 24 Hours Test 04/24/17 14:19 04/24/17 22:08 04/25/17 03:18 04/25/17 06:32 White Blood Count 17.10 K/uL 15.64 K/uL Red Blood Count 4.87 M/uL 4.26 M/uL Hemoglobin 13.2 g/dL 11.8 g/dL Hematocrit 39.3 % 34.3 % Mean Corpuscular Volume 80.7 fL 80.5 fL Mean Corpuscular Hemoglobin 27.1 pg 27.7 pg Mean Corpuscular Hemoglobin Concent 33.6 g/dl 34.4 g/dl Platelet Count 285 K/uL 235 K/uL Mean Platelet Volume 10.3 fL 9.9 fL Neutrophils (%) (Auto) 90.5 % 88.2 % Lymphocytes (%) (Auto) 5.8 % 7.4 % Monocytes (%) (Auto) 2.4 % 3.5 % Eosinophils (%) (Auto) 0.1 % 0.1 % Basophils (%) (Auto) 0.1 % 0.1 % Neutrophils # (Auto) 15.49 K/uL 13.80 K/uL Lymphocytes # (Auto) 1.00 K/uL 1.16 K/uL Monocytes # (Auto) 0.41 K/uL 0.55 K/uL Eosinophils # (Auto) 0.01 K/uL 0.01 K/uL Basophils # (Auto) 0.01 K/uL 0.01 K/uL RDW Standard Deviation 44.1 fL 45.0 fL RDW Coefficient of Variation 15.2 % 15.5 % Immature Granulocyte % (Auto) 1.1 % 0.7 % Immature Granulocyte # (Auto) 0.18 K/uL 0.11 K/uL Polychromasia 1+ Anisocytosis PRESENT Sodium Level 134 mmol/L 138 mmol/L Potassium Level 3.7 mmol/L 4.0 mmol/L Chloride Level 101 mmol/L 104 mmol/L Carbon Dioxide Level 21 mmol/L 21 mmol/L Anion Gap 12.0 mmol/L 13.0 mmol/L Blood Urea Nitrogen 9 mg/dl 8 mg/dl Creatinine 0.74 mg/dl 0.69 mg/dl Est Creatinine Clear Calc Drug Dose 132.4 ml/min 142.0 ml/min Estimated GFR () 131.4 141.2 Estimated GFR (Non- 113.4 121.8 BUN/Creatinine Ratio 11.7 12.3 Random Glucose 129 mg/dl 98 mg/dl Calcium Level 7.9 mg/dl 7.7 mg/dl Magnesium Level 5.7 mg/dl 4.5 mg/dl Total Bilirubin 0.5 mg/dl 0.4 mg/dl Aspartate Amino Transf (AST/SGOT) 43 U/L 47 U/L Alanine Aminotransferase (ALT/SGPT) 38 U/L 35 U/L Alkaline Phosphatase 201 U/L 183 U/L Total Protein 6.4 gm/dl 6.0 gm/dl Albumin 2.2 gm/dl 2.1 gm/dl Globulin 4.2 gm/dl 3.9 gm/dl Albumin/Globulin Ratio 0.5 0.5 Urine Color YELLOW Urine Appearance CLEAR Urine pH 5.5 Urine Specific [place] 1.019 Urine Protein NEG Urine Glucose (UA) NEG Urine Ketones NEG Urine Occult Blood 1+ Urine Nitrite NEG Urine Bilirubin NEG Urine Urobilinogen NEG Urine Leukocyte Esterase NEG Urine WBC (Auto) 1-5 /hpf Urine RBC (Auto) 0-4 /hpf Urine Hyaline Casts (Auto) 5-10 /lpf Urine Epithelial Cells (Auto) 5-10 /lpf Urine Bacteria (Auto) NEG Assessment and Plan Post-Op Day#: 1 Continue Routine Care: 31F s/p for failure to dilate, now PPD #1. - Blood type O positive. GBS negative. Rubella immune. - Vital signs reviewed. Afebrile overnight but still tachycardic and tachypneic. - Pain controlled with toradol. - Improving bilateral leg swelling and no tenderness on calf palpation. Encourage ambulation once able. - Encourage breast feeding. - Hemoglobin pre-delivery 13.1, post-delivery trended to 13.2. Bleeding has improved. Continue to monitor clinically. - On standby in the event she develops another fever: ampicillin, gentamicin, and clindamycin for presumed endometritis. Blood cultures pending. - Continue post delivery care. - Pt agreed with above plan, all current questions answered. Lux Mcduffie MD, PGY1 Home Health Lpn Physician Supervision Note: I was present with Dr. Mcduffie during the history and exam. I discussed the case with the resident and agree with the findings and plan as documented in the note. Any exceptions or clarifications are listed here: POD#1, doing well. Preeclampsia labs stable. Mag due to come off at noon. CT chest negative. Sleep study appears to show sleep apnea - official report pending. Continue routine postop care. Documented By: Sandy Vargas Resident Tracking Resident Involvement: Resident Care Provided Care Provided: OB Delivery (OB rounds)
[2017-04-25 07:14] LABS: BUN/CREATININE RATIO 13.7 (10-20); CALCIUM 8.1 mg/dl (8.5-10.1); CREATININE 0.63 mg/dl (0.60-1.20); MAGNESIUM 4.7 mg/dl (1.8-2.4); POTASSIUM 3.8 mmol/L (3.5-5.1)
[2017-04-25 07:17] LABS: ALB/GLOB RATIO 0.5 (0.9-2)
[2017-04-25] MEDS: DOCUSATE SODIUM 100 MG CAP PO SCH ×2 (09:59→19:58)
--- NOTE | 2017-04-25 10:27 | Pharmacy Progress Note ---
Pharmacy Abx Initial Consult Date of Service Apr 25, 2017. Pharmacy Dosing Scope Date of Consult: 04/25/17 Consultation requested by: Dr Vargas Pharmacy is consulted to initiate Gentamicin IV therapy, order appropriate labs and adjust drug dose/frequency. Subjective The patient is a 22 year old female admitted on Apr 22, 2017 at 14:08 for fever post- ( 04/24), concern for post- endometritis Objective Height (Feet): 5 Height (Inches): 3.00 Weight (Kilograms): 100.250 Vital Signs (Past 12Hrs) Vital Signs Past 12 Hours Date Time Temp Pulse Resp B/P (MAP) Pulse Ox O2 Delivery O2 Flow Rate FiO2 04/25/17 09:20 112 26 147/101 (116) 96 Room Air 04/25/17 08:25 37.3 113 22 146/102 (117) Room Air Lab Results (24Hrs) Laboratory Tests (24 Hours) Test 04/25/17 06:32 White Blood Count 14.43 K/uL (4.8-10.8) H Red Blood Count 4.08 M/uL (4.2-5.4) L Hemoglobin 11.5 g/dL (12.0-16.0) L Hematocrit 33.1 % (37-47) L Mean Corpuscular Volume 81.1 fL (80-100) Mean Corpuscular Hemoglobin 28.2 pg (25-34) Mean Corpuscular Hemoglobin Concent 34.7 g/dl (32-36) Platelet Count 218 K/uL (130-400) Mean Platelet Volume 10.0 fL (7.4-10.4) Neutrophils (%) (Auto) 83.4 % Lymphocytes (%) (Auto) 10.6 % Monocytes (%) (Auto) 5.0 % Eosinophils (%) (Auto) 0.1 % Basophils (%) (Auto) 0.1 % Neutrophils # (Auto) 12.03 K/uL (1.4-6.5) H Lymphocytes # (Auto) 1.53 K/uL (1.2-3.4) Monocytes # (Auto) 0.72 K/uL (0.11-0.59) H Eosinophils # (Auto) 0.01 K/uL (0-0.5) Basophils # (Auto) 0.02 K/uL (0-0.2) Micro Results Date/Time Source Procedure Growth Status 04/24/17 23:48 Blood Blood Culture Pending Received 04/24/17 23:40 Blood Blood Culture Pending Received Assessment & Plan Assessment * 22 year old female who had 04/24/17 * Developed fever post- and empiric abx added for possible post- endometritis (Ampicillin + Clindamycin + Gentamicin) * Only weight available is a patient stated weight from 04/22. RN contacted for updated post- weight to guide Gentamicin dosing * Patient is not a candidate for extended-interval dosing * Overnight started patient on a gentamicin IV regimen, using traditional dosing method and estimated adjusted BW of ~71.5kg Plan Gentamicin * Overnight RPh began gentamicin 100 mg (~1.4mg/kg adj BW) Q 8 hours * Dosage based on adjusted body weight for patients weighing > 120% of ideal body weight. * Will check peak and trough levels with the 3rd dose * Goal peak 6-7, goal trough < 1 Pharmacy will continue to follow and will adjust dose/frequency as necessary. Thank you.
[2017-04-25] MEDS: OXYCODONE/ACETAMINOPHEN 5-325 TAB PO PRN ×3 (10:47→23:59)
[2017-04-25] MEDS: SIMETHICONE 80 MG CHEW PO SCH ×3 (13:29→19:58)
[2017-04-25] MEDS: IBUPROFEN 600 MG TAB PO PRN ×2 (19:39→23:59)
[2017-04-25] MEDS ORDERED: BISACODYL 5 MG TABEC PO ONE (22:00)
[2017-04-26] VITALS (11 sets, daily range): BP systolic 139–165; BP diastolic 88–117; PULSE 93–102; TEMP 36.4–37.2; O2SAT 95–98
[2017-04-26] MEDS ORDERED: GENT. PEAK 1 EA IV ONE ×3 (02:00→18:00)
[2017-04-26] MEDS: GENTAMICIN INJ 100 MG in DEXTROSE 5% 100ML 100 ML IV SCH ×3 (02:14→17:41)
[2017-04-26] MEDS: CLINDAMYCIN IV 900 MG in DEXTROSE 5% 100ML 100 ML IV SCH ×3 (03:53→19:54)
[2017-04-26] MEDS: AMPICILLIN IV 2,000 MG in SODIUM CHLOR 0.9% AD-VAN 100ML 100 ML IV SCH ×4 (06:04→23:19)
[2017-04-26 06:59] LABS: CREATININE 0.53 mg/dl (0.60-1.20)
--- NOTE | 2017-04-26 07:41 | Progress Note ---
Subjective Apr 26, 2017. Subjective conversation w/ patient, physical exam, chart review, lab review Ambulation: limited ambulation (to bathroom) Voiding: no voiding problems, henley catheter in place Passing Gas: Yes Diet Tolerance: Regular Diet Lochia: Small Feeding Type: Breast Feeding Pain: Says pain and cramping continue, but feel improved from yesterday Comment: Found pt resting comfortably. Says pain improving, swelling in legs feels the same. No acute concerns. Review of Systems Constitutional: + fever, No chills Respiratory: No cough, No shortness of breath Cardiac: + edema, No chest pain Abdomen: No nausea, No vomiting, No diarrhea Female : No dysuria Objective Vital Signs Date Time Temp Pulse Resp B/P (MAP) Pulse Ox O2 Delivery O2 Flow Rate FiO2 04/26/17 04:00 36.4 99 24 147/97 (114) Room Air 04/26/17 00:08 36.6 102 24 157/99 (118) 95 Room Air 04/25/17 23:45 95 Room Air 04/25/17 20:00 37.7 123 36 168/98 (121) 98 Room Air 04/25/17 18:00 39.1 128 04/25/17 17:21 39.1 125 22 168/111 (130) 04/25/17 15:07 Room Air 04/25/17 11:30 37.8 110 20 148/104 (119) 04/25/17 09:20 112 26 147/101 (116) 96 Room Air 04/25/17 09:20 96 Room Air 04/25/17 08:25 37.3 113 22 146/102 (117) Room Air Physical Exam General Appearance: WELL-APPEARING, WD/WN, NO APPARENT DISTRESS Respiratory/Chest: lungs clear, normal breath sounds, no respiratory distress Cardiovascular: regular rate, rhythm (borderline regular tachycardia), no murmur Abdomen: normal bowel sounds, non tender, soft Fundus: Firm, Tender (over lower abdomen, improved from yesterday), Relation to Umbilicus (approx one down) Incision Description: Clean, Dry & Intact (dressing in place) Extremities: normal range of motion, non-tender, no calf tenderness, + pedal edema (2+ bilaterally) Laboratory Results Last 24 Hours Test 04/26/17 06:09 Creatinine 0.53 mg/dl Est Creatinine Clear Calc Drug Dose 184.8 ml/min Estimated GFR () > 150.0 Estimated GFR (Non- 132.9 Assessment and Plan Post-Op Day#: 2 Continue Routine Care: 31F s/p for failure to dilate, now PPD #2. Surgery notable for uterine atony. - Blood type O positive. GBS positive. Rubella immune. - Vital signs reviewed. Tachycardia near-resolved. Febrile yesterday, not this morning. - Started on triple abx to cover for endometritis. - Pain controlled with motrin and percocet. . - Bilateral leg swelling, improved from pre-delivery. No tenderness on calf palpation. Encourage ambulation. - Encourage breast feeding. - Hemoglobin pre-delivery 13.1, post-delivery trended to 11.5. Bleeding has improved. Continue to monitor clinically. - Likely has sleep apnea as well which will need close f/u on eventual d/c. - Continue post delivery care. - Pt agreed with above plan, all current questions answered. Lux Mcduffie MD, PGY1 Blending Tank Tender Physician Supervision Note: I interviewed and examined the patient. Discussed with Dr. Mcduffie and agree with findings and plan as documented in the note. Any exceptions or clarifications are listed here: Dressing removed, incision c/d/i. Fundus remains notably tender. Though a B-bonilla can sometimes cause increased tenderness, I feel she probably has endomyometritis that explains her fevers. Continue triple abx therapy. BP remains increased, largely in a HTN but not severe range. Awaiting additional measurements after AM pain medicine dose. May need antihypertensive if values continue to be elevated. Patient is noted to be asymptomatic with this, feeling clinically much better. Documented By: Berkley Bermudez Resident Tracking Resident Involvement: Resident Care Provided Care Provided: OB Delivery (OB rounds)
[2017-04-26] MEDS: DOCUSATE SODIUM 100 MG CAP PO SCH ×2 (08:23→19:55)
[2017-04-26] MEDS: SIMETHICONE 80 MG CHEW PO SCH ×4 (08:23→19:54)
[2017-04-26] MEDS: IBUPROFEN 600 MG TAB PO PRN ×3 (10:06→23:27)
[2017-04-26] MEDS: OXYCODONE/ACETAMINOPHEN 5-325 TAB PO PRN ×3 (10:06→23:27)
[2017-04-26] MEDS: LABETALOL HCL 100 MG TAB PO SCH ×2 (10:48→19:54)
--- NOTE | 2017-04-26 10:54 | Progress Note ---
Progress Note Date of Service Apr 26, 2017. Progress Note Patient resting comfortably in bed getting her antibiotics. She denies orellana/ vision changes/ruq pain. Swelling much improved per her report. Her blood pressures however have remained elevated. all morning she has had 160 /100. Can see trend of slightly increasing pressures over time. has run 140- 160/80-100 since off mag. abd--no ruq pain, does have uterine tenderness (c/w endometritis which we are treating) ext--tr-+1 edema, no clonus, dtrs +1/2 a/p--iup induced for preeclampsia. c/s for failure to progress. being treated with iv antibiotics for endometritis. last tem at 5pm yesterday 39 .1. Does not appear to be developing worsening disease, but pressures remain elevated. I believe she needs antihypertensives. Will start labetolol 100mg bid and monitor pressures closely.
[2017-04-26] MEDS: LACTATED RINGER'S 1000ML 1,000 ML IV SCH (11:24)
[2017-04-26] MEDS ORDERED: BISACODYL 10 MG SUPP PR PRN (12:15)
[2017-04-26] MEDS ORDERED: GENTAMICIN TROUGH ONE (17:30)
--- NOTE | 2017-04-26 21:39 | Pharmacy Progress Note ---
Pharmacy Abx Dose Progress Nt Date of Service Apr 26, 2017. Pharmacy Dosing Scope The patient is currently receiving the following antimicrobial agents per Pharmacy consult: Gentamicin 100 mg IV every 8 hours Objective Height (Feet): 5 Height (Inches): 3.00 Weight (Kilograms): 100.250 Vital Signs (Past 12Hrs) Vital Signs Past 12 Hours Date Time Temp Pulse Resp B/P (MAP) Pulse Ox O2 Delivery O2 Flow Rate FiO2 04/26/17 16:24 Room Air 04/26/17 16:19 37.0 95 20 144/88 (106) 98 Room Air 04/26/17 11:55 36.8 98 20 139/90 (106) 04/26/17 10:21 160/104 (122) 04/26/17 10:20 102 20 158/105 (122) Micro Results Date/Time Source Procedure Growth Status 04/24/17 23:48 Blood Blood Culture - Preliminary NO GROWTH TO DATE. Resulted 04/24/17 23:40 Blood Blood Culture - Preliminary NO GROWTH TO DATE. Resulted Assessment & Plan Assessment * 22 year old female who had 04/24/17 * Developed fever post- and empiric abx added for possible post- endometritis (Ampicillin + Clindamycin + Gentamicin) * Only weight available is a patient stated weight from 04/22. RN contacted for updated post- weight to guide Gentamicin dosing * Patient is not a candidate for extended-interval dosing * Overnight started patient on a gentamicin IV regimen, using traditional dosing method and estimated adjusted BW of ~71.5kg Overnight RPh began gentamicin 100 mg (~1.4mg/kg adj BW) Q 8 hours * Dosage based on adjusted body weight for patients weighing > 120% of ideal body weight. Plan Gentamicin * Patient is not a candidate for extended-interval dosing due to altered pharmacokinetics in the setting of less than six weeks post- * Peak level of 3.2 mcg/mL (04/26 @1947) is subtherapeutic. Goal peak level for post- endometritis: 5 to 6 mcg/mL. * Trough level of 0.4 mcg/mL (04/26 @ 1734) is therapeutic. Goal trough level for less than 1 mcg/mL. * Change dose to Gentamicin 125 mg (1.74 mg/kg) IV every 8 hours * Dosage based on adjusted body weight for patients weighing > 120% of ideal body weight. Estimated adjusted BW of ~71.5kg * Peak and trough level ordered for 04/28/17 around the 5th dose of new regimen. Pharmacy will continue to follow and will adjust dose/frequency as necessary. Thank you.
[2017-04-27 00:26] VITALS: BP 164/99; PULSE 93; TEMP 37.2
[2017-04-27] MEDS: DEXTROSE 5% IV SCH ×2 (01:59→10:05)
[2017-04-27] MEDS: GENTAMICIN IV SCH ×2 (01:59→10:05)
[2017-04-27] MEDS: CLINDAMYCIN IV 900 MG in DEXTROSE 5% 100ML 100 ML IV SCH ×2 (04:03→12:27)
[2017-04-27] MEDS: AMPICILLIN IV 2,000 MG in SODIUM CHLOR 0.9% AD-VAN 100ML 100 ML IV SCH ×3 (05:09→17:21)
[2017-04-27 07:27] LABS: BASO % 0.2 %; BASO ABS # 0.03 K/uL (0-0.2); COMPLETE YES; EOS % 1.7 %; HEMATOCRIT 32.3 % (37-47); IG% 2.8 %; LYMPH % 12.9 %; LYMPH ABS # 1.68 K/uL (1.2-3.4); MEAN CELL VOLUME 82.4 fL (80-100); MEAN CORPUSCULAR HEMOGLOBIN 27.8 pg (25-34); MEAN CORPUSCULAR HGB CONC 33.7 g/dl (32-36); MEAN PLATELET VOLUME 9.4 fL (7.4-10.4); MONO % 4.8 %; NEUT % 77.6 %; PLATELET COUNT 248 K/uL (130-400); RED BLOOD COUNT 3.92 M/uL (4.2-5.4); WHITE BLOOD COUNT 13.04 K/uL (4.8-10.8)
[2017-04-27 07:55] LABS: CREATININE 0.46 mg/dl (0.60-1.20)
--- NOTE | 2017-04-27 08:06 | Progress Note ---
Subjective Apr 27, 2017. Subjective conversation w/ patient, conversation w/ family, physical exam, chart review, lab review Ambulation: ambulating normally Voiding: no voiding problems, henley catheter in place Diet Tolerance: Regular Diet Lochia: Small Feeding Type: Breast Feeding Pain: Ongoing low abdomen, mostly with movement Comment: Found pt resting comfortably. Denies any particular acute concerns. Says that the CPAP mask bothered her so she didn't want to use it. Review of Systems Constitutional: No fever, No chills Respiratory: No cough, No shortness of breath Cardiac: + edema, No chest pain Abdomen: No nausea, No vomiting, No diarrhea Female : No dysuria Objective Vital Signs Date Time Temp Pulse Resp B/P (MAP) Pulse Ox O2 Delivery O2 Flow Rate FiO2 04/27/17 00:46 Room Air 04/26/17 23:27 36.7 100 20 145/92 (109) Room Air 04/26/17 20:00 37.2 93 20 164/99 (120) Room Air 04/26/17 16:24 Room Air 04/26/17 16:19 37.0 95 20 144/88 (106) 98 Room Air 04/26/17 11:55 36.8 98 20 139/90 (106) 04/26/17 10:21 160/104 (122) 04/26/17 10:20 102 20 158/105 (122) 04/26/17 08:53 165/116 (132) 04/26/17 08:50 36.7 99 24 161/117 (132) 98 Room Air Physical Exam General Appearance: WELL-APPEARING, WD/WN, NO APPARENT DISTRESS Respiratory/Chest: lungs clear, normal breath sounds, no respiratory distress Cardiovascular: regular rate, rhythm (borderline tachycardia), no murmur Abdomen: normal bowel sounds, soft, + tenderness (mostly inferior to umbilicus) Fundus: Firm, Tender, Relation to Umbilicus (approx one down) Incision Description: Clean, Dry & Intact (no d/c or surrounding erythema) Extremities: normal range of motion, no calf tenderness, + pedal edema (2+ bilaterally, unchanged from yesterday) Laboratory Results Last 24 Hours Test 04/26/17 17:34 04/26/17 19:47 04/27/17 06:44 Gentamicin Level Trough 0.40 mcg/ml Gentamicin Level Peak 3.2 mcg/ml White Blood Count 13.04 K/uL Red Blood Count 3.92 M/uL Hemoglobin 10.9 g/dL Hematocrit 32.3 % Mean Corpuscular Volume 82.4 fL Mean Corpuscular Hemoglobin 27.8 pg Mean Corpuscular Hemoglobin Concent 33.7 g/dl Platelet Count 248 K/uL Mean Platelet Volume 9.4 fL Neutrophils (%) (Auto) 77.6 % Lymphocytes (%) (Auto) 12.9 % Monocytes (%) (Auto) 4.8 % Eosinophils (%) (Auto) 1.7 % Basophils (%) (Auto) 0.2 % Neutrophils # (Auto) 10.13 K/uL Lymphocytes # (Auto) 1.68 K/uL Monocytes # (Auto) 0.62 K/uL Eosinophils # (Auto) 0.22 K/uL Basophils # (Auto) 0.03 K/uL RDW Standard Deviation 47.4 fL RDW Coefficient of Variation 15.8 % Immature Granulocyte % (Auto) 2.8 % Immature Granulocyte # (Auto) 0.36 K/uL Nucleated RBC Absolute Count (auto) 0.03 K/uL Nucleated Red Blood Cells % 0.3 % Creatinine 0.46 mg/dl Est Creatinine Clear Calc Drug Dose 212.9 ml/min Estimated GFR () > 150.0 Estimated GFR (Non- 139.2 Assessment and Plan Post-Op Day#: 3 Continue Routine Care: 31F s/p for failure to dilate, now PPD #3. Surgery notable for uterine atony. - Blood type O positive. GBS positive. Rubella immune. - Vital signs reviewed. Resolved fever >24 hours. Tachycardia is now borderline. Began labetalol 100 mg PO bid scheduled yesterday. - On triple abx beginning 09Oct to cover for endomyometritis. BCx x 2 no growth thus far. Goal to transition to PO abx once afebrile x 48 hours. - Pain controlled with motrin and percocet. . - Bilateral leg swelling, improved from pre-delivery, unchanged from yesterday. No tenderness on calf palpation. Encourage ambulation. - Encourage breast feeding. - Hemoglobin pre-delivery 13.1, post-delivery trended to 10.9. Bleeding continues to improve. Continue to monitor clinically. - Likely has sleep apnea. Pt thus far non-compliant with CPAP here. Discussed risks of untreated JANUSZ with pt, will work on arranging close f/u with PCM upon eventual d/c. - Continue post delivery care. - Pt agreed with above plan, all current questions answered. Lux Mcduffie MD, PGY1 Raw Cheese Worker Physician Supervision Note: I interviewed and examined the patient. Discussed with Dr. Mcduffie and agree with findings and plan as documented in the note. Any exceptions or clarifications are listed here: Patient is improving. Has been afebrile for 36 hrs on triple antibiotics. Goal is 48 hrs afebrile and then transition to po. Pressures improved on Labetolol. Continue to monitor. Patient has been noncompliant with both SCDs and CPAP. I too stressed the importance of treating JANUSZ for jail health. She notes she will try to wear CPAP tonight. Will need to arrange for outpatient f/u. Continue routine PP care. Stressed importance of wearing SCDs for prevention of blood clots. Encouraged ambulation. Documented By: Katia Goldberg Resident Tracking Resident Involvement: Resident Care Provided Care Provided: OB Delivery (OB rounds)
[2017-04-27] MEDS: LABETALOL HCL 100 MG TAB PO SCH ×2 (08:34→19:50)
[2017-04-27] MEDS: DOCUSATE SODIUM 100 MG CAP PO SCH ×2 (08:34→19:49)
[2017-04-27 08:35] VITALS: BP 160/101; PULSE 110; TEMP 36.8; O2SAT 98
[2017-04-27] MEDS: SIMETHICONE 80 MG CHEW PO SCH ×4 (08:35→19:48)
[2017-04-27] MEDS: OXYCODONE/ACETAMINOPHEN 5-325 TAB PO PRN ×3 (08:56→21:58)
[2017-04-27] MEDS: IBUPROFEN 600 MG TAB PO PRN ×3 (08:57→21:57)
[2017-04-27 16:00] VITALS: BP 145/90; PULSE 108; TEMP 36.9
[2017-04-27 19:50] VITALS: BP 151/94; PULSE 102; TEMP 36.5; O2SAT 97
[2017-04-27] MEDS ORDERED: FAMOTIDINE 20 MG TAB PO PRN (21:15)
[2017-04-27] MEDS: CLINDAMYCIN HCL 150 MG CAP PO SCH (21:55)
[2017-04-28 00:25] VITALS: BP 146/93; PULSE 98; TEMP 36.7; O2SAT 99
[2017-04-28] MEDS: IBUPROFEN 600 MG TAB PO PRN ×3 (02:26→13:43)
[2017-04-28] MEDS: OXYCODONE/ACETAMINOPHEN 5-325 TAB PO PRN ×5 (02:27→18:13)
[2017-04-28] MEDS: CLINDAMYCIN HCL 150 MG CAP PO SCH ×2 (06:39→13:36)
--- NOTE | 2017-04-28 06:45 | Progress Note ---
Subjective Apr 28, 2017. Subjective conversation w/ patient, physical exam, chart review, lab review Ambulation: ambulating normally Voiding: no voiding problems, henley catheter in place Passing Gas: Yes Diet Tolerance: Regular Diet Lochia: Small Feeding Type: Breast Feeding Pain: Denies much pain at present Comment: Found pt lying in bed, comfortable, smiling, and denies any acute concerns. Review of Systems Constitutional: No fever, No chills Respiratory: No cough, No shortness of breath Cardiac: No chest pain Abdomen: No nausea, No vomiting, No diarrhea Female : No dysuria Objective Vital Signs Date Time Temp Pulse Resp B/P (MAP) Pulse Ox O2 Delivery O2 Flow Rate FiO2 04/28/17 00:25 99 Room Air 04/28/17 00:25 36.7 98 20 146/93 (110) Room Air 04/27/17 19:50 36.5 102 21 151/94 (113) 97 Room Air 04/27/17 16:00 36.9 108 22 145/90 (108) Room Air 04/27/17 16:00 Room Air 04/27/17 08:35 36.8 110 20 160/101 (120) 98 Room Air 04/27/17 08:35 98 Room Air Physical Exam General Appearance: WELL-APPEARING, WD/WN, NO APPARENT DISTRESS Respiratory/Chest: lungs clear, normal breath sounds, no respiratory distress Cardiovascular: regular rate, rhythm (borderline tachycardia, regular), no murmur Abdomen: normal bowel sounds, non tender, soft Fundus: Firm, Tender (mild), Relation to Umbilicus (approx one down) Incision Description: Clean, Dry & Intact (steristrips in place, no d/c or surrounding erythema) Extremities: normal range of motion, no calf tenderness, + pedal edema (2+ bilaterally, roughly unchanged over past couple days) Laboratory Results Last 24 Hours Test 04/27/17 06:44 04/28/17 04:44 White Blood Count 13.04 K/uL Red Blood Count 3.92 M/uL Hemoglobin 10.9 g/dL Hematocrit 32.3 % Mean Corpuscular Volume 82.4 fL Mean Corpuscular Hemoglobin 27.8 pg Mean Corpuscular Hemoglobin Concent 33.7 g/dl Platelet Count 248 K/uL Mean Platelet Volume 9.4 fL Neutrophils (%) (Auto) 77.6 % Lymphocytes (%) (Auto) 12.9 % Monocytes (%) (Auto) 4.8 % Eosinophils (%) (Auto) 1.7 % Basophils (%) (Auto) 0.2 % Neutrophils # (Auto) 10.13 K/uL Lymphocytes # (Auto) 1.68 K/uL Monocytes # (Auto) 0.62 K/uL Eosinophils # (Auto) 0.22 K/uL Basophils # (Auto) 0.03 K/uL RDW Standard Deviation 47.4 fL RDW Coefficient of Variation 15.8 % Immature Granulocyte % (Auto) 2.8 % Immature Granulocyte # (Auto) 0.36 K/uL Nucleated RBC Absolute Count (auto) 0.03 K/uL Nucleated Red Blood Cells % 0.3 % Creatinine 0.46 mg/dl Est Creatinine Clear Calc Drug Dose 212.9 ml/min Estimated GFR () > 150.0 Estimated GFR (Non- 139.2 Assessment and Plan Post-Op Day#: 4 Continue Routine Care: Resident Physician Supervision Note: I was present with Dr. Russellring the history and exam. I discussed the case with the resident and agree with the findings and plan as documented in the note. Any exceptions or clarifications are listed here: [None] Documented By: Isabela Rushing 31F s/p for failure to dilate, now PPD #4. Surgery notable for uterine atony. - Blood type O positive. GBS positive. Rubella immune. - Vital signs reviewed. Resolved fever >60 hours. Tachycardia borderline to ongoing. Began labetalol 100 mg PO bid scheduled on 10Oct with plans to continue for six weeks . - On triple abx beginning 09Oct to cover for endomyometritis. BCx x 2 no growth thus far. Transitioned to PO clindamycin and augmentin on 11Oct after afebrile x 48 hours. - Pain controlled with motrin and percocet. . - Bilateral leg swelling, improved from pre-delivery, unchanged over past few days. No tenderness on calf palpation. Encourage ambulation (has been more frequent here). - Encourage breast feeding. - Hemoglobin pre-delivery 13.1, post-delivery trended to 10.9. Bleeding continues to improve. Continue to monitor clinically. - Likely has sleep apnea with poor initial CPAP compliance here. Pt agrees to f /u with PCM in next week for further testing and home CPAP fitting/use. - Continue post delivery care. - Pt agreed with above plan, all current questions answered. Lux Mcduffie MD, PGY1 Community Development Manager Tracking Resident Involvement: Resident Care Provided Care Provided: OB Delivery (OB rounds)
[2017-04-28] MEDS ORDERED: LBT100 PO (06:51)
[2017-04-28] MEDS ORDERED: CLC150 PO (06:51)
[2017-04-28] MEDS ORDERED: CLC100 PO (06:51)
[2017-04-28] MEDS ORDERED: OXYC-57 PO (06:51)
[2017-04-28] MEDS ORDERED: MTR600X PO (06:51)
[2017-04-28] MEDS ORDERED: AMOX1TAB42 PO (06:51)
--- NOTE | 2017-04-28 06:52 | Discharge Instructions ---
Discharge Instructions Date of Service Apr 28, 2017. Admission Reason for Admission: Bp Checks Discharge Discharge Diagnosis / Problem: recovery after Discharge Goals Goal(s): Routine recovery after Activity Recommendations Activity Limitations: per Instructions/Follow-up section . Instructions / Follow-Up Instructions / Follow-Up ACTIVITY RECOMMENDATIONS: * Gradual return to full activity over the next 2-3 weeks. * No lifting - nothing heavier than baby over the next 2-3 weeks. * Do not engage in vigorous exercise, sexual activity or sports until cleared by your physician. * Do not drive or operate any motorized equipment until cleared by your physician. * You may shower/bathe daily. MEDICATIONS: For discomfort or pain, you may use Acetaminophen (Tylenol), Ibuprofen (Advil), or Naproxen (Aleve) following the package directions. For constipation you may use Colace following the package directions. BREAST CARE: If you are not breast feeding: * Wear a supportive bra 24 hours a day for one to two weeks. * Avoid stimulating your breasts and nipples as much as possible during the first few weeks after delivery. * When taking a shower, have the warm water hit your back, not breasts. * When your breasts feel full, apply ice packs. Usually three to four times a day helps ease the discomfort. * Take a mild pain medication (Tylenol / Motrin) when you are uncomfortable. If breast feeding: * Use breast milk to lubricate nipples. Lansinoh cream may be used for sore nipples. You do not need to remove cream prior to breast feeding. If using a different brand of cream, check the label for directions regarding removal of cream prior to nursing. * Wear a supportive bra. * If having problems with breasts or breast feeding, call a healthcare consultant or your health care provider. SPECIAL CARE INSTRUCTIONS: When you are discharged from the hospital, it is important for you to follow the instructions listed below: * During the first week at home, you should be able to care for yourself and your baby. In addition, the usual light household activities are encouraged. * Limit your activities to the way you feel. Do not try to clean the house or move furniture. Be sensible. * If you actively engage in sports and have done so up until the time of your delivery, you may resume these activities as soon as you feel able. This may take up to one month or even longer. Use good judgment. * Continue to take your vitamins for at least six weeks after the of your baby. * Your diet need not be limited unless you were on a special diet before your delivery. Breast-feeding mothers need around 2500 calories per day and at least 64-80 ounces of fluid per day (8 to 10 glasses). * You should eat foods from the four major food groups. Crash diets or fad diets are to be avoided. Eating lean meats, fresh fruits and vegetables, low-fat dairy products, high fiber foods and a regular exercise program, will help you get back to your pre- weight without putting your health at risk. * Constipation is sometimes a problem after delivery. Take a mild laxative as needed. If breast feeding, Milk of Magnesia is acceptable to use. You may use a suppository or Fleets enema. * A daily shower or tub bath is suggested. Wash incision daily with warm soapy water and pat dry. It doesn't need to be covered unless drainage is present. * A bloody vaginal discharge will usually continue until around four weeks . A small amount of bleeding may continue for as long as six weeks. Vaginal discharge changes from the bright red bleeding after delivery to pink then brownish and finally yellowish-pink before becoming white and disappearing. * Bleeding may increase with activity. Your first period may come in 4-8 weeks. If you are breast feeding, your period may be delayed even longer. * [place] (sex) can begin whenever both you and your partner feel comfortable and do not have any form of genital infection. It is recommended that you wait at least six weeks for internal and external healing to occur. If you have questions, please talk to your health care practitioner. A condom should be used to prevent infection and . * Foreplay, gentle intercourse and lubrication is very important the first several times to prevent pain. A water-based lubricant such as K-Y jelly or Astroglide may be used. * If you have RH negative blood and your baby is RH positive, you will receive RHOGAM by injection prior to discharge. The nurse will give you a card to keep with you that has the date and place that you received RHOGAM after delivery. * During your care, you had a Rubella screen done to check for the presence of rubella antibodies in your blood. If your test was negative, you will receive a Rubella vaccine prior to discharge. This vaccine may cause a fever, soreness at the injection site and flu-like symptoms. If these symptoms persist, notify your health care practitioner. is not advised for one month after a Rubella vaccine. * Verbalizes understanding of car seat law as reviewed with patient nursing. * Car Seat hand-out given and reviewed with patient by nursing. * Shaken baby information reviewed with patient by nursing. Call you doctor if: * Heavy bleeding (saturating several pads an hour) or passing clots the size of your fist. * A fever >101 degrees F (38.3 degrees C) on two occasions four hours apart and /or chills. * Unusual pain in the pelvic or vaginal areas. * Call the doctor for any increased redness, drainage or swelling around the incision and any pain unrelieved by prescribed pain medication. * "Baby Blues" lasting longer than two weeks. If you have any questions or concerns, call your health care practitioner at . FOLLOW UP VISIT: * Please call the office at to schedule a 6 week examination. It is important you keep this appointment. It is important for you to make arrangements for either yearly or twice yearly check-ups thereafter. Current Hospital Diet Patient's current hospital diet: Regular OB Diet Discharge Diet Recommended Diet: Regular OB Diet Procedures Procedures Performed: Primary Lower Uterine Transverse Caesarean Section for the of a viable male at 1115. B-Benz suture of uterus. Pending Studies Studies pending at discharge: no Medical Emergencies . Who to Call and When: Medical Emergencies: If at any time you feel your situation is an emergency, please call [phone] immediately. . Non-Emergent Contact Non-Emergency issues call your: Head Librarian . . "Provider Documentation" section prepared by Isabela Rushing. . VTE Core Measure Inpt VTE Proph given/why not?: Treatment not indicated
[2017-04-28 07:50] VITALS: BP 141/93; PULSE 78; TEMP 36.7
[2017-04-28] MEDS: SIMETHICONE 80 MG CHEW PO SCH ×2 (08:37→13:36)
[2017-04-28] MEDS: LABETALOL HCL 100 MG TAB PO SCH (08:37)
[2017-04-28] MEDS: AMOXICILLIN/CLAVULANATE TAB 500 MG TAB PO SCH ×2 (08:37→17:30)
[2017-04-28] MEDS: DOCUSATE SODIUM 100 MG CAP PO SCH (08:37)
[2017-04-28] MEDS ORDERED: GENTAMICIN TROUGH ONE (09:30)
[2017-04-28] MEDS ORDERED: GENT. PEAK 1 EA IV SCH (10:00)
[2017-04-28 10:01] LABS: CREATININE 0.54 mg/dl (0.60-1.20)
[2017-04-28 16:20] VITALS: BP 137/94; PULSE 92; TEMP 36.7; O2SAT 98
[2017-04-28 17:56] VITALS: BP_DIAS 94; PULSE 92; TEMP 36.7
== END 2017-04-28 18:50 | disposition home or self-care (01) | DRG 765 ==
LOC: C.OPB 12:15 → C.LD 12:16 → C.OPB 14:08 → C.OBG 04-25 08:51
PROVIDERS: ADMIT Obstetrics & Gynecology; ATTEND Obstetrics & Gynecology
PROC: 10907ZC Drainage of Amniotic Fluid, Therapeutic from Products of Conception, Via Natural or Artificial Opening (ICD-10-PCS; principal; 2017-04-23)
PROC: 10D00Z1 Extraction of Products of Conception, Low, Open Approach (ICD-10-PCS; 2017-04-24)
DX: O62.0 Primary inadequate contractions (principal); O86.12 Endometritis following delivery; O14.14 Severe pre-eclampsia complicating childbirth; O62.2 Other uterine inertia; Z3A.36 36 weeks gestation of pregnancy; Z37.0 Single live birth; R00.0 Tachycardia, unspecified; R06.82 Tachypnea, not elsewhere classified

== ENCOUNTER → 2017-04-22 | Outpatient (CLI) | payer BC ==
[2017-04-22 11:51] LABS: HEMATOCRIT 39.4 % (37-47); MEAN CELL VOLUME 81.6 fL (80-100); MEAN CORPUSCULAR HEMOGLOBIN 27.1 pg (25-34); MEAN PLATELET VOLUME 10.9 fL (7.4-10.4); PLATELET COUNT 249 K/uL (130-400); RED BLOOD COUNT 4.83 M/uL (4.2-5.4); WHITE BLOOD COUNT 11.06 K/uL (4.8-10.8)
[2017-04-22 11:56] LABS: MEAN CORPUSCULAR HGB CONC 33.2 g/dl (32-36)
[2017-04-22 12:28] LABS: ALKALINE PHOSPHATASE 194 U/L (45-117); ALT/SGPT 52 U/L (12-78); AST/SGOT 45 U/L (15-37); CREATININE 0.64 mg/dl (0.60-1.20)
== END | disposition home or self-care (01) ==
LOC: C.LAB1850 11:16
PROVIDERS: ATTEND Obstetrics & Gynecology
DX: O14.03 Mild to moderate pre-eclampsia, third trimester (principal)

== ENCOUNTER 2017-05-12 11:06 | Emergency (ER) | payer BC ==
[~2017-05-12] VITALS: Ht 162.6 cm; Wt 86.9 kg
[~2017-05-12 11:06] MED LIST changes: +AMOX1TAB42 PO; +CLC100 PO; +CLC150 PO; +LBT100 PO; +MTR600X PO; +OXYC-57 PO
[2017-05-12 11:12] VITALS: TEMP 36.9; Ht 162.6 cm; Wt 86.9 kg
[2017-05-12] MEDS ORDERED: ACETAMINOPHEN 500 MG TAB PO STA (11:43)
[2017-05-12] MEDS ORDERED: OPTIRAY 320 IV PRN (12:00)
--- NOTE | 2017-05-12 12:00 | EMERGENCY ROOM VISIT NOTE ---
History First contact with patient: 11:28 Chief Complaint: BACK PAIN Stated Complaint: BLEEDING/PAIN IN BACK NEAR EPIDORAL SITE/ABD. PAIN History of Present Illness The patient is a 22 year old female who presents to the Emergency Room with complaints of severe back pain and lower abdominal pain for the last few weeks. The patient is 3 weeks . She did not progress very well with labor. She ultimately ended up with a . She had an epidural with the procedure. The patient notes ongoing lower back pain. Yesterday, she also noted some bleeding from the epidural site. She has not taken anything for pain. The pain does not go down her legs. She denies any numbness or tingling. No weakness in her extremities. She is also complaining of severe lower abdominal pain and pain from the incision site. She also feels feverish. She did not take her temperature at home. Vaginal bleeding has been moderate. Review of Systems 10 system review performed and negative unless noted in HPI or below Past Medical/Surgical History Medical Problems: (1) Gestational hypertension w/o significant proteinuria in 3rd trimester (2) -induced hypertension in third trimester Social History Smoking Status: Never Smoker Housing Status: lives with significant other Current/Historical Medications Scheduled Calcium/Vitamin D ([place] 500 Plus D), 1 TAB PO DAILY Cephalexin Monohydrate (Keflex), 500 MG PO TID Docusate Sodium (Colace), 1 CAP PO BID Labetalol Hcl (Labetalol Hcl), 100 MG PO BID Multivit/Min/Iron/Fol Ac/Pren ( Vitamin), 1 TAB PO DAILY Scheduled PRN Ibuprofen (Motrin), 600 MG PO Q6H PRN for Pain Oxycodone/Acetaminophen 5MG/325MG (Percocet 5MG/325MG), 1 TAB PO Q4H PRN for Pain Miscellaneous Medications Ferrous Sulfate (Ferrous Sulfate) Physical Exam Vital Signs Date Time Temp Pulse Resp B/P (MAP) Pulse Ox O2 Delivery O2 Flow Rate FiO2 05/12/17 17:45 73 16 138/83 98 05/12/17 17:35 73 16 138/83 98 05/12/17 13:41 71 16 150/73 97 Room Air 05/12/17 11:12 36.9 81 16 141/83 98 Room Air Physical Exam VITALS: Vitals are noted on the nurse's note and reviewed by myself. Vital signs stable. GENERAL: 22-year-old female, in moderate discomfort,, SKIN: The incision on her abdomen is intact. No significant erythema. No drainage noted. It appears to be healing well. HEAD: Normocephalic atraumatic. NECK: Supple without nuchal rigidity. Cervical spine is nontender. No JVD. HEART: Regular rate and rhythm. Faint systolic murmur noted. LUNGS: Clear to auscultation bilaterally without wheezes, rales or rhonchi. No accessory muscle use. ABDOMEN: Positive bowel sounds x 4.Soft, tenderness to palpation within the right lower, left lower and suprapubic regions. Positive guarding. MUSCULOSKELETAL: Trace nonpitting edema in the left lower extremity with calf tenderness noted. No erythema. Strength 5/5 throughout. Tenderness to palpation over the lumbar spinous processes. No active bleeding noted from the epidural site. NEURO: Patient was alert and oriented to person place and time. Normal sensation to touch. No focal neurological deficits. Medical Decision & Procedures ER Provider Diagnostic Interpretation: Pelvic US IMPRESSION: uterus. 6 mm heterogeneous endometrial stripe with trace flow by color Doppler. No adnexal masses. Electronically signed by: Kwesi Zavala M.D. 05/12/2017 4:39 PM MRI L spine w/w/o contrast IMPRESSION: 1. There is no disc herniation, central canal stenosis, or significant neural foraminal narrowing seen throughout the lumbar spine. 2. Minimal degenerative disc disease at L5-S1 as above. 3. The bony structures are normal in appearance. 4. No epidural fluid collection is identified. Electronically signed by: Selvin Wilkerson M.D. 05/12/2017 3:52 PM Dictated Date/Time: 05/12/2017 3:[address] IMPRESSION: 1. No significant abnormality within the lumbar spine. 2. No fracture or subluxation. 3. Paraspinal soft tissues are unremarkable. 4. Minimal disc space narrowing at L5-S1. 5. No definite central canal or neural foraminal narrowing. Of note, evaluation for an epidural or intrathecal abnormality is essentially nondiagnostic by CT technique. This would require MRI for further evaluation. Electronically signed by: Iggy Ramírez M.D. 05/12/2017 1:32 PM Dictated Date/Time: 05/12/2017 1:25 PM abd/pelvis CT IMPRESSION: 1. Mild bladder wall thickening is suggested. Correlate clinically and with urinalysis for evidence of cystitis. 2. The post gravid uterus is enlarged and heterogeneous. Nonspecific stranding is seen throughout the pelvic fat and there is trace pelvic free fluid. These findings are nonspecific and may be related to recent surgery. Superimposed infection would be impossible to exclude and clinical correlation will be required.. 3. There is nonspecific thickening of the endometrium in the fundal region which measures up to 2.4 cm. This may represent fluid/blood clots. Correlation with pelvic ultrasound is recommended to assess for retained proximal of conception. 4. Trace pleural effusions. 5. Additional findings as above. Electronically signed by: Selvin Wilkerson M.D. 05/12/2017 1:30 PM Dictated Date/Time: 05/12/2017 1:25 PM LE US IMPRESSION: There is no sonographic evidence of deep venous thrombosis identified in the left lower extremity. Electronically signed by: Selvin Wilkerson M.D. 05/12/2017 12:57 PM Dictated Date/Time: 05/12/2017 12:56 PM Laboratory Results 05/12/17 12:00 Red Blood Count 4.48, Mean Corpuscular Volume 81.9, Mean Corpuscular Hemoglobin 26.8, Mean Corpuscular Hemoglobin Concent 32.7, Mean Platelet Volume 9.9, Neutrophils (%) (Auto) 62.0, Lymphocytes (%) (Auto) 29.5, Monocytes (%) (Auto) 5.1, Eosinophils (%) (Auto) 2.6, Basophils (%) (Auto) 0.4, Neutrophils # (Auto) 3.30, Lymphocytes # (Auto) 1.57, Monocytes # (Auto) 0.27, Eosinophils # (Auto) 0.14, Basophils # (Auto) 0.02 05/12/17 12:00 Test 05/12/17 12:00 05/12/17 12:33 White Blood Count 5.32 K/uL (4.8-10.8) Red Blood Count 4.48 M/uL (4.2-5.4) Hemoglobin 12.0 g/dL (12.0-16.0) Hematocrit 36.7 % (37-47) Mean Corpuscular Volume 81.9 fL (80-100) Mean Corpuscular Hemoglobin 26.8 pg (25-34) Mean Corpuscular Hemoglobin Concent 32.7 g/dl (32-36) Platelet Count 348 K/uL (130-400) Mean Platelet Volume 9.9 fL (7.4-10.4) Neutrophils (%) (Auto) 62.0 % Lymphocytes (%) (Auto) 29.5 % Monocytes (%) (Auto) 5.1 % Eosinophils (%) (Auto) 2.6 % Basophils (%) (Auto) 0.4 % Neutrophils # (Auto) 3.30 K/uL (1.4-6.5) Lymphocytes # (Auto) 1.57 K/uL (1.2-3.4) Monocytes # (Auto) 0.27 K/uL (0.11-0.59) Eosinophils # (Auto) 0.14 K/uL (0-0.5) Basophils # (Auto) 0.02 K/uL (0-0.2) RDW Standard Deviation 43.9 fL (36.4-46.3) RDW Coefficient of Variation 14.7 % (11.5-14.5) Immature Granulocyte % (Auto) 0.4 % Immature Granulocyte # (Auto) 0.02 K/uL (0.00-0.02) Prothrombin Time 10.6 SECONDS (9.0-12.0) Prothromb Time International Ratio 1.0 (0.9-1.1) Anion Gap 8.0 mmol/L (3-11) Est Creatinine Clear Calc Drug Dose 126.8 ml/min Estimated GFR () 133.6 Estimated GFR (Non- 115.3 BUN/Creatinine Ratio 22.6 (10-20) Calcium Level 9.3 mg/dl (8.5-10.1) Total Bilirubin 0.2 mg/dl (0.2-1) Aspartate Amino Transf (AST/SGOT) 32 U/L (15-37) Alanine Aminotransferase (ALT/SGPT) 52 U/L (12-78) Alkaline Phosphatase 144 U/L (45-117) Total Protein 8.3 gm/dl (6.4-8.2) Albumin 3.5 gm/dl (3.4-5.0) Globulin 4.8 gm/dl (2.5-4.0) Albumin/Globulin Ratio 0.7 (0.9-2) Urine Color YELLOW Urine Appearance CLOUDY (CLEAR) Urine pH 5.0 (4.5-7.5) Urine Specific [place] 1.026 (1.000-1.030) Urine Protein 1+ (NEG) Urine Glucose (UA) NEG (NEG) Urine Ketones NEG (NEG) Urine Occult Blood 3+ (NEG) Urine Nitrite NEG (NEG) Urine Bilirubin NEG (NEG) Urine Urobilinogen NEG (NEG) Urine Leukocyte Esterase SMALL (NEG) Urine WBC (Auto) 10-30 /hpf (0-5) Urine RBC (Auto) >30 /hpf (0-4) Urine Hyaline Casts (Auto) 10-30 /lpf (0-5) Urine Epithelial Cells (Auto) >30 /lpf (0-5) Urine Bacteria (Auto) NEG (NEG) Urine Renal Epithelial Cells /lpf (0-5) Urine Pathogenic Casts 0-3 GRANULAR CASTS /lpf (0) Urine Mucus PRESENT (NONE PRSENT) Medications Administered Medications (Trade) Dose Ordered Sig/Fior Route Start Time Stop Time Status Last Admin Dose Admin Acetaminophen (Tylenol Tab) 1,000 mg NOW STAT PO 05/12/17 11:43 05/12/17 11:48 DC 05/12/17 11:57 1,000 MG Cephalexin Monohydrate (Keflex Cap) 500 mg NOW ONCE PO 05/12/17 17:30 05/12/17 17:31 DC 05/12/17 17:32 500 MG Morphine Sulfate (MoRPHine SULFATE INJ) 4 mg ONE STAT IV 05/12/17 17:22 05/12/17 17:23 DC 05/12/17 17:33 4 MG ED Course Patient was seen and examined Vital signs including blood pressure were reviewed medications list was verified with patient Labs were obtained, and a saline lock was established The patient was given Tylenol 1 g for pain Imaging was performed and reviewed. The findings were discussed with the patient. She was understanding. I urged her to proceed with an MRI and an ultrasound. She was in agreement. Patient was given 1 dose of morphine 4 mg IV prior to the ultrasound. Her imaging was reviewed. The findings were discussed with the patient. The case was also discussed with supervising physician. The patient was given 1 dose of Keflex. She did request one more dose of pain medication prior to discharge. She was given an additional dose of morphine. I reviewed discharge instructions the patient. They voiced understanding and had no further questions. Medical Decision Differential diagnosis: Epidural abscess, hematoma, chronic back pain, postoperative pain, infectious etiology such as endometritis, retained products of conception, postoperative infection, bleeding, ovarian cysts, UTI, other intra-abdominal abnormality This patient is a 22-year-old female who is 3 weeks presenting to the emergency department with back pain and lower abdominal pain. On exam, she did have point tenderness over the lumbar spine. She also has significant tenderness diffusely over the lower abdomen. She did not have any rebound tenderness. Her workup reveals no leukocytosis. She is afebrile. Imaging of the spine was obtained to rule out epidural abscess or hematoma. No acute abnormalities were noted of the MRI of the lumbar spine. A CT of the abdomen and pelvis was performed. There was a questionable 2.4 cm endometrial thickening at the fundus. This was question was whether or not it was retained products of conception. An ultrasound was ordered. No retained products were noted. It does appear that she has a UTI per her urinalysis. The patient was started on Keflex for urinary tract infection. She was also given a short course of narcotics for pain. She did have adequate pain control in the emergency department. I believe she is stable to be discharged home with very close OB follow-up. She is comfortable with this plan. She was urged to return to the emergency department immediately for any new or worsening symptoms. This chart was completed in part utilizing [employer] Speech Voice Recognition software. Attempts were made to minimize the grammatical errors, random word insertions, pronoun errors and incomplete sentences. Any formal questions or concerns about the content, text or information contained within the body of this dictation should be directly addressed to the provider for clarification. Blood Pressure Screening Patient's blood pressure: Elevated blood pressure Blood pressure disposition: Elevated BP felt to be situational Impression Primary Impression: Back pain Additional Impression: Lower abdominal pain Departure Information Dispostion Home / Self-Care Condition GOOD Prescriptions Oxycodone/Acetaminophen 5MG/325MG (PERCOCET 5MG/325MG) Tab 1 TAB PO Q4H Y for Pain, #15 TAB For Initial Treatment Prov: Katia Haji PA-C 05/12/17 Cephalexin Monohydrate (Keflex) 500 Mg Cap 500 MG PO TID for 7 Days, #21 CAP Prov: Katia Haji PA-C 05/12/17 Referrals Isabela Fraga M.D. (PCP) Patient Instructions My [facility] Additional Instructions You were evaluated in the emergency department for back pain and lower abdominal pain. It appears that you have a urinary tract infection. You have been prescribed Keflex. Please finish the entire course of antibiotics. Please eat yogurt or a probiotic daily while taking this medication. Ibuprofen 600 mg every 6 hours Percocet 1-2 tabs every 4 hours for severe pain. Do not drink alcohol or drive while taking this medication. This may be taken with ibuprofen, but avoid Tylenol. Please call the [facility] doctor in the morning for a follow-up appointment. You should be seen at the latest early next week. Return to the emergency department if you have any of the following symptoms: -Fever of 101F or greater -Persistent vomiting - Persistent diarrhea -Lethargy -Chest pain -Shortness of breath -Worsening pain Problem Qualifiers
[2017-05-12] MEDS ORDERED: IBUP-1450 PO (12:02)
[2017-05-12] MEDS ORDERED: DOCU-94 PO (12:02)
[2017-05-12] MEDS ORDERED: LABE100T23 PO (12:02)
[2017-05-12 12:15] LABS: BASO % 0.4 %; BASO ABS # 0.02 K/uL (0-0.2); COMPLETE YES; EOS % 2.6 %; HEMATOCRIT 36.7 % (37-47); IG% 0.4 %; LYMPH % 29.5 %; LYMPH ABS # 1.57 K/uL (1.2-3.4); MEAN CELL VOLUME 81.9 fL (80-100); MEAN CORPUSCULAR HEMOGLOBIN 26.8 pg (25-34); MEAN CORPUSCULAR HGB CONC 32.7 g/dl (32-36); MEAN PLATELET VOLUME 9.9 fL (7.4-10.4); MONO % 5.1 %; PLATELET COUNT 348 K/uL (130-400); RED BLOOD COUNT 4.48 M/uL (4.2-5.4); WHITE BLOOD COUNT 5.32 K/uL (4.8-10.8)
[2017-05-12 12:25] LABS: PROTHROMBIN TIME (PATIENT) 10.6 SECONDS (9.0-12.0)
[2017-05-12 12:42] LABS: BUN/CREATININE RATIO 22.6 (10-20); CALCIUM 9.3 mg/dl (8.5-10.1); CREATININE 0.73 mg/dl (0.60-1.20)
[2017-05-12 12:53] LABS: ALB/GLOB RATIO 0.7 (0.9-2)
--- NOTE | 2017-05-12 12:58 | DIAGNOSTIC IMAGING REPORT ---
ULTRASOUND LEFT LOWER EXTREMITY VENOUS CLINICAL HISTORY: Left leg pain and swelling. COMPARISON STUDY: No priors. TECHNIQUE: Real-time, grayscale, and color Doppler sonography of the deep veins of the left lower extremity was performed from the inguinal crease to the calf. Compression and augmentation were utilized. FINDINGS: There is no sonographic evidence of deep venous thrombosis identified in the left lower extremity. The common femoral, superficial femoral, and popliteal veins are patent and normally compressible. The greater saphenous vein and the profunda femoris vein at the junction with the common femoral vein are clear. The visualized calf veins are patent. IMPRESSION: There is no sonographic evidence of deep venous thrombosis identified in the left lower extremity. Electronically signed by: Selvin Wilkerson M.D. 05/12/2017 12:57 PM Dictated Date/Time: 05/12/2017 12:56 PM
[2017-05-12 13:01] LABS: URINE APPEARANCE CLOUDY (CLEAR); URINE BILIRUBIN NEG (NEG); URINE COLOR YELLOW; URINE EPITHELIAL CELL AUTO >30 /lpf (0-5); URINE NITRITE NEG (NEG); URINE SPECIFIC GRAVITY 1.026 (1.000-1.030); UROBILINOGEN NEG (NEG)
[2017-05-12 13:08] LABS: MANUAL MICROSCOPIC REQUIRED? NO; REVIEW REQ? YES
[2017-05-12 13:31] LABS: URINE PATH CASTS 0-3 GRANULAR CASTS /lpf (0)
[2017-05-12 13:32] LABS: URINE MUCUS PRESENT (NONE PRSENT)
--- NOTE | 2017-05-12 13:32 | DIAGNOSTIC IMAGING REPORT ---
CT SCAN OF THE ABDOMEN AND PELVIS WITH IV CONTRAST CLINICAL HISTORY: Lower abdominal pain. Recent section delivery. COMPARISON STUDY: No priors. TECHNIQUE: Following the IV administration of 119 cc of Optiray 320, CT scan of the abdomen and pelvis is performed from the lung bases to the proximal femora. Images are reviewed in the axial, sagittal, and coronal planes. IV contrast was administered without complication. A dose lowering technique was utilized adhering to the principles of ALARA. CT DOSE: 535.07 mGy.cm FINDINGS: Lung bases: The heart is normal in size and without pericardial effusion. There are trace pleural effusions. The lung bases are otherwise clear. Liver: The contrast-enhanced liver is normal in size, contour, and attenuation. There is no intrahepatic biliary ductal dilatation. The hepatic veins and portal veins are patent. Gallbladder: Unremarkable. Spleen: Normal in size and attenuation. Pancreas: Unremarkable. Adrenal glands: Unremarkable. Kidneys: The contrast enhanced kidneys are normal in size and without hydronephrosis. The kidneys enhance symmetrically. Abdominal vasculature: The abdominal aorta is normal in course and caliber. Bowel: The small bowel and colon are normal in course and caliber. The appendix is well-visualized and normal. Peritoneum: There is no intraperitoneal free air or abdominal ascites. Lymphadenopathy: None. Pelvic viscera: Mild bladder wall thickening suggested. The uterus is enlarged and heterogeneous. There is prominence of the endometrium in the fundal region which measures up to 2.4 cm. The ovaries are prominent and contain numerous follicles. Free fluid is identified in the pelvis. Mild stranding is present throughout the pelvic fat, greatest anteriorly. No organized fluid collection is seen in the pelvis. Skeletal structures: No lytic or blastic lesions are seen. Sclerotic change is noted in the sacroiliac joints. Soft tissues: Induration within the ventral pelvic fat is likely related to recent surgery. No subcutaneous fluid collection is identified. IMPRESSION: 1. Mild bladder wall thickening is suggested. Correlate clinically and with urinalysis for evidence of cystitis. 2. The post gravid uterus is enlarged and heterogeneous. Nonspecific stranding is seen throughout the pelvic fat and there is trace pelvic free fluid. These findings are nonspecific and may be related to recent surgery. Superimposed infection would be impossible to exclude and clinical correlation will be required.. 3. There is nonspecific thickening of the endometrium in the fundal region which measures up to 2.4 cm. This may represent fluid/blood clots. Correlation with pelvic ultrasound is recommended to assess for retained proximal of conception. 4. Trace pleural effusions. 5. Additional findings as above. Electronically signed by: Selvin Wilkerson M.D. 05/12/2017 1:30 PM Dictated Date/Time: 05/12/2017 1:25 PM
--- NOTE | 2017-05-12 13:34 | DIAGNOSTIC IMAGING REPORT ---
LUMBAR SPINE CT WITH INTRAVENOUS CONTRAST HISTORY: spinal 3 weeks ago, still some bleeding and severe low back pain TECHNIQUE: Multiaxial CT images of the lumbar spine were performed and reformatted in the sagittal coronal plane following the use of intravenous contrast. COMPARISON STUDY: None. FINDINGS: Alignment and curvature intact. No fracture or subluxation. Minimal disc space narrowing at L5-S1. Remaining disc spaces are preserved. No fractures within the visualized sacrum. Paraspinal soft tissues appear unremarkable. No hematoma within the subcutaneous soft tissues of the lumbar region. Mild subcutaneous edema within the lumbar region. No definite central canal or neural foraminal narrowing. Of note, evaluation for epidural or intrathecal abnormality is essentially nondiagnostic by CT technique. IMPRESSION: 1. No significant abnormality within the lumbar spine. 2. No fracture or subluxation. 3. Paraspinal soft tissues are unremarkable. 4. Minimal disc space narrowing at L5-S1. 5. No definite central canal or neural foraminal narrowing. Of note, evaluation for an epidural or intrathecal abnormality is essentially nondiagnostic by CT technique. This would require MRI for further evaluation. Electronically signed by: Iggy Ramírez M.D. 05/12/2017 1:32 PM Dictated Date/Time: 05/12/2017 1:25 PM
[2017-05-12] MEDS ORDERED: MoRPHine SULFATE 4 MG/ML 1 ML CARP\\VIAL IV STA ×2 (14:20→17:22)
[2017-05-12] MEDS ORDERED: ONDANSETRON INJ 2 MG/ML 2 ML VIAL IV STA (14:20)
--- NOTE | 2017-05-12 15:54 | DIAGNOSTIC IMAGING REPORT ---
MRI LUMBAR SPINE COMBO CLINICAL HISTORY: Abdominal pain status post section. Recent epidural for anesthesia. COMPARISON STUDY: CT scan of the lumbar spine dated 05/12/2017. Abdominal CT dated 05/12/2017. TECHNIQUE: MRI of the lumbar spine is performed utilizing various T1 and T2-weighted sequences in the axial and sagittal planes. Contrast-enhanced sequences are acquired following the IV administration of 8 cc of Gadavist. FINDINGS: Lumbar spine: Vertebral body height and alignment are maintained throughout the lumbar spine. Normal marrow signal intensity is preserved throughout the visualized bony structures. The transverse and spinous processes appear intact. There is no evidence of spondylolysis. A hemangioma is noted in the body of L5. Intervertebral discs: There is disc desiccation L5-S1. The remaining discs are normal in height and signal intensity. Spinal cord: The visualized spinal cord is normal in morphology and signal intensity. The conus medullaris terminates at the L1-L2 interspace. No abnormal enhancement is seen on the postcontrast series. The nerve roots of the cauda equina are normal in morphology. Central canal: The central canal is widely patent. No epidural collection is seen. L1-L2: Unremarkable. L2-L3: Unremarkable. L3-L4: Unremarkable. L4-L5: Unremarkable. L5-S1: There is minimal posterior disc bulge with annular fissure. There is no significant acquired compromise of the central canal. The neural foramina are patent. Sacrum: The visualized sacrum is normal in morphology and signal intensity. Soft tissues: The paraspinous soft tissues are within normal limits. The partially imaged retroperitoneal structures are grossly normal but in completely evaluated. The visualized uterus appears enlarged and heterogeneous. An anterior defect is likely related to the reported history of recent section. IMPRESSION: 1. There is no disc herniation, central canal stenosis, or significant neural foraminal narrowing seen throughout the lumbar spine. 2. Minimal degenerative disc disease at L5-S1 as above. 3. The bony structures are normal in appearance. 4. No epidural fluid collection is identified. Electronically signed by: Selvin Wilkerson M.D. 05/12/2017 3:52 PM Dictated Date/Time: 05/12/2017 3:47 PM
--- NOTE | 2017-05-12 16:41 | DIAGNOSTIC IMAGING REPORT ---
EXAMINATION: PELVIC ULTRASOUND (transabdominal only) CLINICAL HISTORY: Severe abdominal pain. History of recent . COMPARISON STUDY: CT scan dated 05/12/2017 FINDINGS: The patient was very tender, and the study is limited from a technical standpoint. Endovaginal study was not performed at the physician's request. The uterus measured 12.3 x 5.4 x 5.9 cm. The endometrial stripe measured 6 mm. There is trace fluid within the endometrium The right ovary measured 36 x 25 x 24 mm. The left ovary measured 6 x 24 x 25 mm. There is no ultrasonographic evidence of ovarian torsion. It should be noted that ovarian torsion can be present with normal Doppler ultrasonographic findings. There was no evidence of pathologic free pelvic fluid. IMPRESSION: uterus. 6 mm heterogeneous endometrial stripe with trace flow by color Doppler. No adnexal masses. Electronically signed by: Kwesi Zavala M.D. 05/12/2017 4:39 PM Dictated Date/Time: 05/12/2017 4:35 PM
[2017-05-12] MEDS ORDERED: OXYC-57 PO (17:22)
[2017-05-12] MEDS ORDERED: CEPH500C PO (17:22)
[2017-05-12] MEDS ORDERED: CEPHALEXIN MONOHYDRATE 250 MG CAP PO ONE (17:30)
[2017-05-12 17:45] VITALS: BP 138/83; PULSE 73; O2SAT 98
== END 2017-05-12 17:45 | disposition home or self-care (01) ==
LOC: C.EDB 11:12 → C.EDC 17:45
DX: M54.5 Low back pain (principal); R10.30 Lower abdominal pain, unspecified; Z79.899 Other long term (current) drug therapy

== ENCOUNTER → 2017-06-16 | Outpatient (CLI) | payer BC ==
[~2017-06-16] MED LIST changes: -AMOX1TAB42 PO; -CLC100 PO; -CLC150 PO; +DOCU-94 PO; +IBUP-1450 PO; +LABE100T23 PO; -LBT100 PO; -MTR600X PO
[2017-06-16 12:29] LABS: URINE APPEARANCE CLOUDY (CLEAR); URINE BILIRUBIN NEG (NEG); URINE COLOR YELLOW; URINE EPITHELIAL CELL AUTO >30 /lpf (0-5); URINE NITRITE NEG (NEG); URINE SPECIFIC GRAVITY 1.022 (1.000-1.030); UROBILINOGEN NEG (NEG)
[2017-06-16 12:34] LABS: MANUAL MICROSCOPIC REQUIRED? NO; REVIEW REQ? NO
== END | disposition home or self-care (01) ==
LOC: C.LAB1850 09:45
PROVIDERS: ATTEND Nurse Practitioner Adult Health
DX: R30.0 Dysuria (principal)

== ENCOUNTER → 2017-06-16 | Outpatient (CLI) | payer BC | END | disposition home or self-care (01) | LOC: C.LABSPEC 10:08 | PROVIDERS: ATTEND Nurse Practitioner Adult Health | DX: K65.1 Peritoneal abscess (principal) ==

== ENCOUNTER → 2017-06-17 | Outpatient (CLI) | payer BC ==
--- NOTE | 2017-06-17 10:28 | DIAGNOSTIC IMAGING REPORT ---
ABDOMEN LIMITED (US) HISTORY: Pain. Collection. ABDOMEN ABCESS. COMPARISON: None. FINDINGS: No mass or collection by ultrasound criteria. This examination was performed at the incision site as well as surrounding region. IMPRESSION: No mass or collection by ultrasound criteria The above report was generated using voice recognition software. It may contain grammatical, syntax or spelling errors. Electronically signed by: Luis Esparza M.D. 06/17/2017 10:26 AM Dictated Date/Time: 06/17/2017 10:25 AM
== END | disposition home or self-care (01) ==
LOC: C.ULTRBC 09:31
PROVIDERS: ATTEND Nurse Practitioner Adult Health
DX: K65.1 Peritoneal abscess (principal)